=== PATIENT | female | born 1960 | race Caucasian/White ===

== ENCOUNTER 2022-10-07 15:32 | Emergency (ER) | payer OTHER, SELFPAY ==
--- NOTE | ~2022-10-07 | XR_ITS ---
XR ankle RT min 3V, XR foot RT min 3V 10/07/2022 15:55 Indication: Right ankle and foot pain. Procedure: 4 views right ankle and 4 views right foot Comparison: No prior studies for comparison. Findings: There is polyarticular osteoarthritis. Prominent calcaneal enthesophyte. There is an osteoc hondral defect medial aspect of the talar dome. Mild lateral soft tissue swelling. Lisfranc joint is intact. No acute fracture or traumatic malalignment. No foreign bodies. Impression: 1: No acute fracture. Reviewed, dictated and finalized at location A. 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 Impression: 1: No acute fracture.
[2022-10-07 15:39] VITALS: BP 127/86; PULSE 105; RESP 16; TEMP 36.4; O2SAT 100
[2022-10-07 15:41] VITALS: BP 127/86; PULSE 105; RESP 16; TEMP 36.4; O2SAT 100
--- NOTE | 2022-10-07 16:06 | ED.LOWEXIN ---
HPI - Extremity Injury (Lower) General Chief Complaint: Extremity Injury, Lower Stated Complaint: INJURED R ANKLE/TOES Time Seen by Provider: 10/07/22 16:05 Source: patient, RN notes reviewed and old records reviewed Mode of arrival: ambulatory Limitations: no limitations History of Present Illness HPI Narrative: 62 year old female who presents to [facility] care with complaints of slipping on rug this morning in her bathroom and hyperextended her right toes 1-4 and twisted her right ankle. Patient has palpable tenderness to the lateral aspect of her right ankle with swelling present, pain reported to increase with ambulation and weight bearing to 8/10. Patient has main tenderness to 2nd toe right foot with bruising and swelling noted distal 2nd toe. Patient has been taking Tylenol for her discomfort and has applied some ice intermittently. MD complaint: ankle injury and foot injury Onset (ago): hour(s) (this morning) Severity scale (1-10): 5 Exacerbating factors: weight bearing Treatments prior to arrival: cold therapy and other (Tylenol) Related Data Home Medications Medication Instructions Recorded Confirmed hydrochlorothiazide 25 mg tablet 25 mg PO PRN PRN Edema 10/07/22 10/07/22 levothyroxine 150 mcg tablet 150 mcg PO DAILY 10/07/22 10/07/22 (Synthroid) Allergies Allergy/AdvReac Type Severity Reaction Status Date / Time erythromycin base Allergy Unknown Itching Verified 10/07/22 15:39 AMOXICILLIN TRIHYDRATE Allergy Unknown Itching Uncoded 10/07/22 15:39 ERYTHROMYCIN LACTOBIONATE Allergy Unknown Hives Uncoded 10/07/22 15:39 POTASSIUM CLAVULANATE Allergy Unknown Hives Uncoded 10/07/22 15:39 Review of Systems Review of Systems: CONSTITUTIONAL: Denies fever, chills, or sweats. EYES: Denies visual changes, redness, or discharge. ENT: Denies rhinorrhea, congestion, sore throat, or otalgia. CARDIOVASCULAR: Denies chest pain, palpitations, or edema. RESPIRATORY: Denies cough or dyspnea. GASTROINTESTINAL: Denies abdominal pain, nausea, vomiting, or diarrhea. GENITOURINARY: Denies dysuria or hematuria. SKIN: Denies rash or itching. MUSCULOSKELETAL: Denies back pain,positive pain to lateral right ankle joint and pain right 2nd toe with swelling and bruising noted, or myalgia. NEUROLOGIC: Denies headache, numbness, or weakness. PSYCHIATRIC: Denies anxiety or depression. All systems reviewed & are unremarkable except as noted in HPI and below PMFSH Past Medical History Medical History (Updated 10/08/22 @ 09:28 by Ema Maxwell NP) Hypertension Hypothyroid Post-menopausal Surgical History Surgical History (Updated 10/08/22 @ 09:27 by Ema Maxwell NP) History of cholecystectomy History of tonsillectomy Hx of appendectomy Family History Family History Father Carcinoma of colon Mother Family history of lung cancer Other Family history of allergic disorder Family history of cardiovascular disease Hypertension Social History Social History (Updated 10/08/22 @ 09:24 by Ema Maxwell NP) Smoking status: Never smoker Alcohol intake: never Substance use: never Living arrangements: with family Additional occupation/education comments: [employer] 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 There is no relevant family history pertinent to the presenting complaint Exam Narrative: GENERAL: Well-appearing, well-nourished, and in no acute distress. HEAD: Normocephalic, atraumatic. EYES: PERRLA and EOMI. ENT: Nares clear, no rhinorrhea or epistaxis. Mucous membranes moist. NECK: Supple.no lymphadenopathy CHEST: Clear to auscultation. No respiratory distress.SAO2 100% on room air HEART: Regular rate and rhythm. No murmur heard. Normal peripheral pulses. ABDOMEN: Soft, nontender, nondistended, normal
== END 2022-10-07 16:30 | disposition home or self-care (01) ==
PROVIDERS: Emergency Provider Registered Nurse
DX: S93.401A Sprain of unspecified ligament of right ankle, initial encounter (principal); S96.911A Strain of unspecified muscle and tendon at ankle and foot level, right foot, initial encounter; S90.121A Contusion of right lesser toe(s) without damage to nail, initial encounter; I10 Essential (primary) hypertension; E03.9 Hypothyroidism, unspecified; X50.0XXA Overexertion from strenuous movement or load, initial encounter; Y92.002 Bathroom of unspecified non-institutional (private) residence as the place of occurrence of the external cause
CPT/HCPCS: 73610; 73630; 99203; G0463

== ENCOUNTER 2023-05-20 14:45 | Emergency (ER) | payer OTHER, SELFPAY ==
--- NOTE | ~2023-05-20 | XR_ITS ---
EXAM: XR ankle RT min 3V DATE: 05/20/2023 15:31 HISTORY: right ankle pain, injury . COMPARISON: 10/07/2022. FINDINGS: Normal mineralization. No fracture or dislocation. No lytic or blastic lesion. Moderate de generative change in the tibiotalar joint and midfoot. Moderate plantar enthesopathy. No erosion or p eriosteal change. Scattered soft tissue calcifications. IMPRESSION: No acute osseous finding in the right ankle. Reviewed, dictated and finalized at location K.
[2023-05-20 14:46] VITALS: BP 146/95; PULSE 74; RESP 18; TEMP 36.6; O2SAT 98
--- NOTE | 2023-05-20 15:22 | ED.LOWEXIN ---
HPI - Extremity Injury (Lower) General Chief Complaint: Extremity Injury, Lower Stated Complaint: right ankle injury Time Seen by Provider: 05/20/23 14:55 Source: patient Mode of arrival: wheelchair Limitations: no limitations History of Present Illness HPI Narrative: This is a 62 year old female that presents to the ER for right ankle injury sustained a couple hours prior to arrival. Reports she slipped and twisted the ankle. Reports pain and swelling. She is unable to bear weight due to pain. Denies decreased ROM or numbness. Related Data Home Medications Medication Instructions Recorded Confirmed hydrochlorothiazide 25 mg tablet 25 mg PO PRN PRN Edema 10/07/22 10/07/22 levothyroxine 150 mcg tablet 150 mcg PO DAILY 10/07/22 10/07/22 (Synthroid) Allergies Allergy/AdvReac Type Severity Reaction Status Date / Time erythromycin base Allergy Unknown Itching Verified 05/20/23 14:46 AMOXICILLIN TRIHYDRATE Allergy Unknown Itching Uncoded 05/20/23 14:46 ERYTHROMYCIN LACTOBIONATE Allergy Unknown Hives Uncoded 05/20/23 14:46 POTASSIUM CLAVULANATE Allergy Unknown Hives Uncoded 05/20/23 14:46 Review of Systems Review of Systems: CONSTITUTIONAL: Denies fever MUSCULOSKELETAL: Reports joint pain, and myalgia. NEUROLOGIC: Denies numbness All systems reviewed & are unremarkable except as noted in HPI and below PMFSH Past Medical History Medical History (Updated 05/20/23 @ 16:01 by Kia Bolivar PA-C) Hypertension Hypothyroid Post-menopausal Surgical History Surgical History (Updated 10/08/22 @ 09:27 by Ema Maxwell NP) History of cholecystectomy History of tonsillectomy Hx of appendectomy Family History Family History Father Carcinoma of colon Mother Family history of lung cancer Other Family history of allergic disorder Family history of cardiovascular disease Hypertension Social History Social History (Updated 10/08/22 @ 09:24 by Ema Maxwell NP) Smoking status: Never smoker Alcohol intake: never Substance use: never Living arrangements: with family 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 HEAD: Normocephalic, atraumatic. EYES: EOMI. EXTREMITIES: Normal range of motion. No obvious deformity. Normal DP pulse. Normal sensation. Tender to palpation of right lateral malleoli SKIN: Warm, dry, no rash. NEURO: No focal deficits. Alert and oriented x3. PSYCH: Normal mood and affect Course Course Emergency Course: Patient and family updated on work-up and agree with plan of care Vital Signs Vital signs: Vital Signs Temperature 97.9 F 05/20/23 14:46 Pulse Rate 74 05/20/23 14:46 Respiratory Rate 18 05/20/23 14:46 Blood Pressure 146/95 H 05/20/23 14:46 Pulse Oximetry 98 05/20/23 14:46 Oxygen Delivery Room Air 05/20/23 14:46 Temperature 97.9 F 05/20/23 14:46 Pulse Rate 74 05/20/23 14:46 Respiratory Rate 18 05/20/23 14:46 Blood Pressure 146/95 H 05/20/23 14:46 Pulse Oximetry 98 05/20/23 14:46 Oxygen Delivery Room Air 05/20/23 14:46 MDM - Extremity Injury (Lower) MDM Narrative Medical decision making narrative: Patient presents to the emergency department for right ankle pain after an injury today. She is neurovascularly intact. Right ankle x-ray without acute osseous abnormalities. Patient placed in Giuseppe wrap. Instructed on care of ankle sprain. She is to follow-up with primary provider. She was given warnings to return to the ER Differential Diagnosis Differential diagnosis: Likely ankle sprain and strain and ankle fracture Imaging Data Radiologist's impression: ITS Impressions Ankle X-Ray 05/20/23 15:33 IMPRESSION: No acute osseous finding in the right ankle.
[2023-05-20] MEDS: IBUPROFEN 600 MG TABLET PO (15:44)
== END 2023-05-20 16:20 | disposition home or self-care (01) ==
PROVIDERS: Emergency Provider Physician Assistant
DX: S93.401A Sprain of unspecified ligament of right ankle, initial encounter (principal); S96.911A Strain of unspecified muscle and tendon at ankle and foot level, right foot, initial encounter; I10 Essential (primary) hypertension; E03.9 Hypothyroidism, unspecified; Z90.49 Acquired absence of other specified parts of digestive tract; W18.40XA Slipping, tripping and stumbling without falling, unspecified, initial encounter; X50.9XXA Other and unspecified overexertion or strenuous movements or postures, initial encounter
CPT/HCPCS: 73610; 99283; A9270

== ENCOUNTER 2023-12-27 14:49 | Emergency (ER) | payer OTHER, SELFPAY ==
--- NOTE | ~2023-12-27 | XR_ITS ---
EXAMINATION: XR chest 2V DATE: 12/27/2023 15:53 INDICATION: Cough. TECHNIQUE: Frontal and lateral views of the chest were obtained. COMPARISON: Chest 2 views 12/12/2008 FINDINGS: There is no pneumonia, pleural effusion, or pneumothorax. The heart size is normal. Surgica l clips in the right upper quadrant are likely from cholecystectomy. IMPRESSION: 1. No acute cardiopulmonary disease. Reviewed, dictated and finalized at location A.
[2023-12-27 14:58] VITALS: BP 140/81; PULSE 84; RESP 16; TEMP 36.9; O2SAT 96
--- NOTE | 2023-12-27 15:25 | ED.URI ---
HPI - URI/Sore Throat General Chief Complaint: Upper Respiratory Infection Stated Complaint: COUGH/CHEST & RIB TIGHT/NAUSEA/VOMITING/DIARRHEA Time Seen by Provider: 12/27/23 15:26 Source: patient Mode of arrival: ambulatory Limitations: no limitations History of Present Illness HPI Narrative: 63-year-old presented for complaint of cough for 5 days. Reports fever at onset. Cough has caused sleep disturbance, bilateral lower rib pain, and occasional vomiting. Endorses shortness of breath and fatigue at times. Over the last few days she has developed nausea and diarrhea. Last diarrhea was today, denies hematochezia melena, or abdominal pain. Fever has resolved. She tested negative for COVID at the onset. She has taken Tylenol and Zofran for symptoms. History of bilateral leg swelling, denies diagnosis of CHF. Related Data Home Medications Medication Instructions Recorded Confirmed hydrochlorothiazide 25 mg tablet 25 mg PO PRN PRN Edema 10/07/22 12/27/23 levothyroxine 150 mcg tablet 150 mcg PO DAILY 10/07/22 12/27/23 (Synthroid) Allergies Allergy/AdvReac Type Severity Reaction Status Date / Time erythromycin base Allergy Unknown Itching Verified 12/27/23 15:48 AMOXICILLIN TRIHYDRATE Allergy Unknown Itching Uncoded 12/27/23 15:48 ERYTHROMYCIN LACTOBIONATE Allergy Unknown Hives Uncoded 12/27/23 15:48 POTASSIUM CLAVULANATE Allergy Unknown Hives Uncoded 12/27/23 15:48 Review of Systems Review of Systems: CONSTITUTIONAL: Denies body aches, fever, chills, or sweats. EYES: Denies visual changes, redness, or discharge. ENT: Denies rhinorrhea, congestion, sore throat, or otalgia. CARDIOVASCULAR: Denies chest pain, palpitations, or edema. RESPIRATORY: Reports cough, sob,denies wheezing. GASTROINTESTINAL: Denies abdominal pain, vomiting, reports nausea, diarrhea. GENITOURINARY: Denies dysuria or hematuria. SKIN: Denies rash, itching, or wounds. MUSCULOSKELETAL: Denies back pain, joint pain, or myalgia. NEUROLOGIC: Denies headache, numbness, tingling, or weakness. 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 Please see nursing chart for further information. There is no relevant family history pertinent to the presenting complaint Exam Narrative: GENERAL: Well-appearing, in no acute distress. EYES: EOMI. No redness or drainage. Conjunctivae normal. ENT: Mucous membranes pink and moist. No rhinorrhea. TMs normal bilaterally. Throat normal. Uvula midline. CHEST: No respiratory distress. lungs clear to all dorado, exhale induces coughing. Speaks full sentences without difficulty. HEART: Regular rate and rhythm. No murmur appreciated. ABDOMEN: Soft, nontender, nondistended, normal active bowel sounds. EXTREMITIES: Normal range of motion. Bilateral LE edema. SKIN: Warm, dry, no rash. Capillary refill normal. Normal skin turgor. NEURO: Alert and oriented x3. Gait st
--- NOTE | 2023-12-27 16:01 | PC.NURSE ---
1600- report given to pio BRIONES
== END 2023-12-27 16:07 | disposition home or self-care (01) ==
PROVIDERS: Emergency Provider Nurse Practitioner Family; PCP Family Medicine
DX: J40 Bronchitis, not specified as acute or chronic (principal); I10 Essential (primary) hypertension; E03.9 Hypothyroidism, unspecified
CPT/HCPCS: 71046; 99213; G0463

== ENCOUNTER 2025-02-02 10:32 | Emergency (ER) | payer OTHER, SELFPAY ==
--- NOTE | 2025-02-02 10:33 | ED_ITS ---
HPI - URI/Sore Throat General Chief Complaint: Upper Respiratory Infection Stated Complaint: Cough,Fever,Bodyaches Time Seen by Provider: 02/02/25 10:33 Source: patient Mode of arrival: ambulatory Limitations: no limitations History of Present Illness HPI Narrative: Ema is a 64-year-old female patient presenting to the clinic today with complaints of cough, fever, nasal congestion, wheezing, and body aches 2 days. She reports symptoms started the night before last. States her son is also home sick with similar symptoms. Tested herself for COVID yesterday and was negative. States highest fever was 102.5. Cough is productive at times with some clear phlegm. Related Data Allergies Allergy/AdvReac Type Severity Reaction Status Date / Time erythromycin base Allergy Unknown Itching Verified 02/02/25 10:42 AMOXICILLIN TRIHYDRATE Allergy Unknown Itching Uncoded 02/02/25 10:42 ERYTHROMYCIN LACTOBIONATE Allergy Unknown Hives Uncoded 02/02/25 10:42 POTASSIUM CLAVULANATE Allergy Unknown Hives Uncoded 02/02/25 10:42 Review of Systems Review of Systems: Pertinent positives per HPI. Patient denies any rash, headache, visual changes, dizziness, shortness of breath, chest pain, palpitations, nausea, vomiting, diarrhea, constipation, abdominal pain, or any urinary issues. 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 There is no relevant family history pertinent to the patient complaint. Exam Narrative: General: Well-developed, morbidly obese, in no apparent distress Head: Normocephalic, atraumatic Eyes: Pupils equally round and reactive to light bilaterally, EOM intact, sclera and conjunctive clear, no discharge, lids normal Ears: TMs intact and clear, ear canals clear, no drainage, grossly hearing normal. Nose: Nares patent, clear nasal discharge, mild inflammation, no sinus tenderness. Mouth: Oral pharynx without lesions or masses, good dentition, MMM. Postnasal drip, tonsils surgically absent Neck: Supple, trachea midline, no enlargement of anterior or posterior cervical nodes, no thyroid masses or goiter palpable. Cardio: Regular rate and rhythm, s1 and s2 normal, no murmur appreciated. Resp: Clear to auscultation bilaterally, no rhonchi, rales, wheezing or rubs Course Course Emergency Course: Portions of this record may have been created with voice recognition software. Level of Care: Express Care Visit Vital Signs Vital signs: Vital Signs Temperature 36.9 C 02/02/25 10:38 Pulse Rate 85 02/02/25 10:38 Respiratory Rate 18 02/02/25 10:38 Blood Pressure 151/97 H 02/02/25 10:38 Pulse Oximetry 98 02/02/25 10:38 Oxygen Delivery Room Air 02/02/25 10:38 Temperature 36.9 C 02/02/25 10:38 Pulse Rate 85 02/02/25 10:38 Respiratory Rate 18 02/02/25 10:38 Blood Pressure 151/97 H 02/02/25 10:38 Pulse Oximetry 98 02/02/25 10:38 Oxygen Delivery Room Air 02/02/25 10:40 Vital signs reviewed MDM - URI/Sore Throat MDM Narrative Medical decision making narrative: At the time of visit patient is resting comfortably on the exam table. Patient appears to be nontoxic. Labs: COVID and influenza testing was performed and negative in the clinic today. Plan: I suspect patient has URI with cough and congestion. Work note was given. Prescription for Tessalon Perles and albuterol inhaler was sent to the pharmacy. Supportive measures were discussed with the patient and they voiced understanding discharge instructions and agrees to treatment plan. Return precautions reviewed Differential Diagnosis Differential diagnosis: Likely upper respiratory infection, otitis media, sinusitis, viral infection, bronchitis, influenza, pharyngitis and other (COVID) Lab Data Labs: Lab Results 02/02/25 02/02/25 Range/Units 10:55 10:56 POC Influenza A Ag Negative (Negative) POC Influenza B Ag Negative (Negative) POC SARS CoV-2 Ag Negative (Negative) Discharge Plan Discharge Clinical Impression: Upper respiratory infection with cough and congestion Patient Disposition: Home Condition: Stable Instructions: Antibiotic Form, Cold Symptoms (ED) Additional Instructions: COVID and influenza testing was performed and were negative in the clinic today No sign of bacterial infection in the clinic today and lung sounds are clear. Take medications as prescribed-Tessalon Perles for cough and albuterol inhaler as needed for cough, shortness breath, wheeze Increase fluids and stay well hydrated Tylenol/motrin for pain/fever Flonase and OTC antihistamines as directed Vicks vapor rub to open sinuses Sinus rinses for congestion Cepacol spray, cough drops, throat lozenges, warm tea with honey/lemon, gargle salt water to soothe throat BRAT diet for diarrhea Clear liquids x 24 hours then advance as tolerated for nausea/vomiting Go to the ED if you develop a worsening in your condition- high fever not controlled by Tylenol or Motrin, dehydration, weakness, lethargy, shortness of breath, or chest pain. Follow up with your PCP in 3-5 days if symptoms persist. Patient Language: Brazilian Prescriptions: New benzonatate 200 mg capsule 200 mg PO TID 7 Days Qty: 21 0RF albuterol sulfate 90 mcg/actuation HFA aerosol inhaler 2 puff inhalation Q4-6H PRN (Reason: shortness of breath or wheezing) 30 Days Qty: 8.5 0RF Follow-up/Referrals: Twyla,Mahsa Louise MD [Primary Care Provider] - Stand Alone Forms: Work/School Release IP Time of Disposition: 10:56 Quality NIHSS Nursing Documentation ED NIHSS nursing documentation: reviewed/agree
[2025-02-02 10:38] VITALS: BP 151/97; PULSE 85; RESP 18; TEMP 36.9; O2SAT 98
[2025-02-02 10:57] LABS: EDINFLUASCREEN Negative (Negative); EDINFLUBSCREEN Negative (Negative)
[2025-02-02 10:57] LABS: EDCOVIDSCREEN Negative (Negative)
== END 2025-02-02 10:59 | disposition home or self-care (01) ==
PROVIDERS: Emergency Provider Nurse Practitioner Family; PCP Family Medicine
DX: J06.9 Acute upper respiratory infection, unspecified (principal); R05.9 Cough, unspecified; Z20.822 Contact with and (suspected) exposure to COVID-19; I10 Essential (primary) hypertension; E03.9 Hypothyroidism, unspecified
CPT/HCPCS: 87426; 87804; 99213; G0463

== ENCOUNTER 2025-03-04 00:07 | Emergency (ER) | payer OTHER, SELFPAY ==
--- NOTE | ~2025-03-04 | XR_ITS ---
Left elbow Technique: AP, oblique, and lateral views were obtained. Clinical History: Pain Findings: No acute fracture or dislocation is seen. Osseous alignment is anatomic. Joint spaces are p reserved. There is no displacement of the fat pads, and soft tissues are unremarkable. Impression: Unremarkable radiographs. Reviewed, dictated and finalized at location . Impression: Unremarkable radiographs.
--- NOTE | ~2025-03-04 | XR_ITS ---
Left Shoulder Technique: AP and scapular Y views were obtained. Clinical History: Trauma Findings: No fracture or dislocation is seen. Osseous alignment is anatomic. The glenohumeral and acr omioclavicular joint spaces are preserved. Soft tissues are unremarkable. Impression: Unremarkable left shoulder radiographs. Reviewed, dictated and finalized at [facility]. Impression: Unremarkable left shoulder radiographs.
--- NOTE | ~2025-03-04 | XR_ITS ---
Left Humerus Technique: AP and lateral views were obtained. Clinical History: Trauma Findings: No fracture or dislocation is seen. Osseous alignment is anatomic. Visualized joint spaces are grossly preserved. Soft tissues are unremarkable. Impression: Unremarkable examination. No fracture or dislocation. Reviewed, dictated and finalized at location . Impression: Unremarkable examination. No fracture or dislocation.
--- NOTE | ~2025-03-04 | XR_ITS ---
Left Forearm AP and lateral views of the left forearm were performed. Clinical History: Trauma Findings: No fracture or dislocation is seen. Osseous alignment in anatomic. Joint spaces are prese rved. Soft tissues are unremarkable. Impression: Unremarkable exam. Reviewed, dictated and finalized at location M. Impression: Unremarkable exam.
--- OUTSIDE RECORDS SUMMARY | 2025-03-04 00:09 | XMS_ITS | Continuity of Care Document ---
Author Organization [facility] Address [address] [place] [address] [place] [address] Phone Care Team Providers Care Child Care Giver Name Role Phone Lucila AUGUSTINE, Grant Bauer Unavailable Unavaila ble Procedures Procedure Date New Pt-Compreh (4) Scan Computeriz Ophth Dx Imag, Retina Ext Ophthal-Initial LT Ext Ophthal-Initial RT Advance Directives Directive Yes / No Effective Date File Name No Information Encounters Encounter Description Practice Location Reason(s) For Visit Diagnoses Date Provider Providers Copied on Encounter [facility] [address] G[place], [id number], tel:[phone] [facility] No Information 4 Lucila Bauer. [address] [place] [address] Dr Schuyler Jadon, [place], [place], [id number] , . tel:[phone] New Pt-Compreh (4) [facility] [address] [place], [id number], tel:[phone] [facility] No Information 9 Lucila Bauer. [address] [place] [address] Schuyler Baca, [place], [place], [id number] , . [phone] Referring Provider: Katerina Cazares OD, [address], [place], [address] . tel:[phone] Family History Family Member Type Diagnosis Age At Onset No Information Payers Payer name Insurance type Covered democrat ID Authoriza tion(s) No Information Social History Type Description Quantity Date Captured Comments Sex Female Smoking Status No Information Chief Complaint And Reason For Visit No Information Reason For Referral Reason For Referral No Information History Of Present Illness Encounter Date Complaint History Of Prese nt Illness No Information Functional Status Date Functional Assessmen t No Information Instructions Date Instruction Additional Infor mation No Information Assessments Type Assessment Date No Information Patient Care Teams Name Effective Dates (start - stop) Status Members No Information
--- OUTSIDE RECORDS SUMMARY | 2025-03-04 00:09 | XMS_ITS | Referral Summary ---
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
--- OUTSIDE RECORDS SUMMARY | 2025-03-04 00:09 | XMS_ITS | Encounter Summary ---
Author Organization [facility] Address 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
--- OUTSIDE RECORDS SUMMARY | 2025-03-04 00:09 | XMS_ITS | Continuity of Care Document ---
Author Organization [facility] ter Address [address] [place] [address] Phone Care Team Providers Care Derrick Worker Name Role Phone Mary Rowley APRN Unavailable Unavailable Allergies, Adverse Reactions, Alerts Substance Reaction Status Criticality codeine Active No Information Medications Medication Instructions Dosage Effective Dates (start - stop) Status Comments methimazole 5 mg tablet take 1 tablet by oral route 2 times every day 5 MG - Active benazepril 40 mg tablet take 1 tablet by oral route every bedtime 40 MG - Active Klor-Con 10 mEq tablet,extended release take 1 tablet by oral route 2 times every day with food 10 MEQ - Active metoprolol succinate ER 100 mg tablet,extended release 24 hr take 1 tablet by oral route every evening 100 MG - Active Procedures Procedure Date No Show Charge Offic/outpt E&m Estab Low-mod 7 Offic/outpt E&m Estab [facility]-ne 2 17 Preven Meds 40-64 Offic/outpt E&m Estab Low-mod 7 Offic/outpt E&m Estab Mod-ne 2 17 Offic/outpt E&m Estab [facility] [place]-ne 2 17 Offic/outpt E&m Estab Low-mod 7 Init Preven 40-64 Yrs Advance Directives Directive Yes / No Effective Date File Name No Information Encounters Encounter Description Practice Location Reason(s) For Visit Diagnoses Date Provider Providers Copied on Encounter [facility], [address], [place], [place], [id number], [place] tel:[phone] [facility] No Information 0 Halley Hernandez. [address], [address], [place], [place], [id number] , [place]. tel: [phone] [facility], [address], [place], [place], [id number], [place] tel:[phone] [facility] No Information 8 [place]. [address], [place], [place], [id number] , [place]. tel: [phone] No Show Charge [facility], [address], [place], [place], [id number], [place] tel:[phone] [facility] No Information 8 [place]. [address], [address], [place], [place], [id number] , [place]. tel: [phone] [facility], [address], [place], [place], [id number], [place] tel:[phone] [facility] No Information 7 [place]. [address], [place], [place], [id number] , [place]. tel: [phone] Offic/outpt E&m Estab Low-mod [facility], [address], [place], [place], [id number], [place] tel:[phone] [facility] chronic conditions (chief complaint)rev iew labs (chief complaint) Thyrotoxicosis, unspecified without thyrotoxic crisis or stormUnilateral post-traumatic osteoarthritis, right kneeEssential (primary) hypertensionHypok alemia 7 [place]. [address], [address], [place], [place], [id number] , [place]. tel: [phone] Offic/outpt E&m Estab Mod-hi 2 [facility], [address], [place], [place], [id number], [place] tel:[phone] [facility] chronic conditions (chief complaint)dis cuss lab results (chief complaint) Thyrotoxicosis, unspecified without thyrotoxic crisis or stormUnilateral post-traumatic osteoarthritis, right kneeAllergic rhinitis due to pollenEssential (primary) hypertensionType 2 diabetes mellitus with diabetic dermatitisHypokal emia 7 [place]. [address], [place], [place], [id number] , [place]. tel: [phone] Prev Meds 40-64 [facility], [address], [place], [place], [id number], [place] tel:[phone] [facility] chronic conditions (chief complaint)rev iew labs (chief complaint)pre ventive exam (chief complaint) Thyrotoxicosis, unspecified without thyrotoxic crisis or stormUnilateral post-traumatic osteoarthritis, right kneeType 2 diabetes mellitus with diabetic dermatitisEssenti al (primary) hypertensionHypok alemiaBody mass index (BMI) 37.0-37.9, adultEncounter for general adult medical examination without abnormal findings 7 [place]. [address] [facility], [place], [place], [id number] , [place]. tel: [phone] Offic/outpt E&m Estab Low-mod [facility], [address], [place], [place], [id number], [place] tel:[phone] [facility] hypertension (chief complaint)ref ill (chief complaint)chr onic conditions (chief complaint) Thyrotoxicosis, unspecified without thyrotoxic crisis or stormEssential (primary) hypertensionUnila teral post-traumatic osteoarthritis, right kneeType 2 diabetes mellitus with diabetic dermatitis 7 [place]. [address], [place], [place], [address] , [place]. tel:[phone] Offic/outpt E&m [facility] 2 [facility], [address], [place], [place], [id number], [place] tel:[phone] [facility] chronic conditions (chief complaint)rev iew labs (chief complaint) Thyrotoxicosis, unspecified without thyrotoxic crisis or stormUnilateral post-traumatic osteoarthritis, right kneeAllergic rhinitis due to pollenType 2 diabetes mellitus with diabetic dermatitisEssenti al (primary) hypertensionAnemi a 7 [place]. [address], [place], [place], [id number] , [place]. tel:[phone] Offic/outpt E&m [facility] 2 [facility], [address], [place], [place], [address], [place] tel:[phone] [facility] chronic conditions (chief complaint)dis cuss medication/ (chief complaint) Thyrotoxicosis, unspecified without thyrotoxic crisis or stormAllergic rhinitis due to pollenType 2 diabetes mellitus with diabetic dermatitisEssenti al (primary) hypertensionAnemi a 7 [place]. [address], [place], [place], [address] , [place]. tel:[phone] Offic/outpt E&m Estab Low-mod [facility], [address], [place], [place], [id number], [place] tel:[phone] [facility] chronic conditions (chief complaint)rev iew labs (chief complaint)ref ill (chief complaint) Thyrotoxicosis, unspecified without thyrotoxic crisis or stormAllergic rhinitis due to pollenUnilateral post-traumatic osteoarthritis, right kneeEssential (primary) hypertensionType 2 diabetes mellitus with diabetic dermatitisEncount er for screening for lipoid disorders 7 [place]. [address], [address], [place], [place], [address] , [place]. tel:[phone] Init Preven 40-64 Yrs [facility], [address], [place], [place], [id number], [place] tel:[phone] [facility] chronic conditions (chief complaint)lab slip (chief complaint) Essential (primary) hypertensionThyro toxicosis, unspecified without thyrotoxic crisis or stormUnilateral post-traumatic osteoarthritis, right kneeMenorrhagiaTy pe 2 diabetes mellitus with diabetic dermatitis 7 [place]. [address], [address], [place], [place], [address] , [place]. tel:[phone] Family History Family Member Type Diagnosis Age At Onset Problem (finding) Family history of malignant neoplasm of lung Problem (finding) Family history of Heart disease Problem (finding) Family history of diabetes mellitus type 2 Problem (finding) Family history of hyper tension Payers Payer name Insurance type Covered constitution party ID Authoriza tion(s) No Information Social History Type Description Quantity Date Captured Comments Sex Female Smoking Status No Information Chief Complaint And Reason For Visit No Information Reason For Referral Reason For Referral No Information Plan Of Treatment Date Type Action Status Referral Ordered: Diana -Gynecology (related to Menorrhagia) ordered Referral Referred To: Diana Ordered: Referrals: Gynecology. Diana. Consult ordered Future Order: Lab Order Iron/TIB C ([id number]), Sent on: Sent Future Order: Lab Order FERRITIN ([id number]), Sent on: Sent Future Order: Lab Order CBC with Diff ([id number]), Sent on: Sent History Of Present Illness Encounter Date Complaint History Of Prese nt Illness chronic conditions 1) Thyrotoxic osis, unspecified without thyrotoxic crisis or storm (onset 11/03/2016; Stable. pt has no complaints) 2) Unilateral post-traumatic osteoarthritis, right knee (onset 11/03/2016; Stable. pt has no complaints) 3) Essential (primary) hypertension (onset 11/03/2016; Stable. pt has no complaints) Pertinent negatives include fatigue. review labs chronic conditions 1) Thyrotoxic osis, unspecified without thyrotoxic crisis or storm (onset 11/03/2016; Stable. pt has no complaints) 2) Unilateral post-traumatic osteoarthritis, right knee (onset 11/03/2016; Stable. pt has no complaints) 3) Allergic rhinitis due to pollen (onset 11/03/2016; Stable. pt has no complaints) 4) Essential (primary) hypertension (onset 11/03/2016; Stable. pt has no complaints) 5) Type 2 diabetes mellitus with diabetic dermatitis (onset 11/03/2016; Stable. pt has no complaints) Pertinent negatives include fatigue. discuss lab results pt was to cavanaugh ve surgery today but it was cx because her potassium was to low 2.5 -- she was told to f/u with her PCP / she is on potassium klor con 40meq 2 tabs bic preventive exam Negative for dys menorrhea and menorrhagia. Menopausal symptoms negative for: night sweats. Pertinent negatives include anxiety, depression and vaginal discharge. The patient does not use tobacco. She does drink alcohol. chronic conditions 1) Thyrotoxic osis, unspecified without thyrotoxic crisis or storm (onset 11/03/2016; Stable. pt has no complaints) 2) Unilateral post-traumatic osteoarthritis, right knee (onset 11/03/2016; Stable. pt has no complaints) 3) Type 2 diabetes mellitus with diabetic dermatitis (onset 11/03/2016; Stable. pt has no complaints) 4) Essential (primary) hypertension (onset 11/03/2016; Stable. pt has no complaints) Pertinent negatives include fatigue. review labs chronic conditions 1) Thyrotoxic osis, unspecified without thyrotoxic crisis or storm (onset 11/03/2016; Stable. pt has no complaints) 2) Essential (primary) hypertension (onset 11/03/2016; Stable. pt has no complaints) 3) Unilateral post-traumatic osteoarthritis, right knee (onset 11/03/2016; Stable.) 4) Type 2 diabetes mellitus with diabetic dermatitis (onset 11/03/2016; Stable. pt has no complaints) Pertinent negatives include fatigue. refill hypertension The symptoms beg an 30 years ago. It is currently getting worse. Risk factors include race. The hypertension is exacerbated by nothing. Pertinent negatives include chest pain, claudication, dyspnea, fatigue, hematuria, irregular heartbeat/palpitations and vomiting. chronic conditions 1) Thyrotoxic osis, unspecified without thyrotoxic crisis or storm (onset 11/03/2016; Stable. pt has no complaints) 2) Unilateral post-traumatic osteoarthritis, right knee (onset 11/03/2016; Stable. pt has no complaints) 3) Allergic rhinitis due to pollen (onset 11/03/2016; Stable. pt has no complaints) 4) Type 2 diabetes mellitus with diabetic dermatitis (onset 11/03/2016; Stable. pt has no complaints) 5) Essential (primary) hypertension (onset 11/03/2016; Uncontrolled. pt has no complaints) Pertinent negatives include fatigue. review labs chronic conditions 1) Thyrotoxic osis, unspecified without thyrotoxic crisis or storm (onset 11/03/2016; Stable. pt has no complaints) 2) Allergic rhinitis due to pollen (onset 11/03/2016; Stable. pt has no complaints) 3) Type 2 diabetes mellitus with diabetic dermatitis (onset 11/03/2016; Stable. pt has no complaints) 4) Essential (primary) hypertension (onset 11/03/2016; Stable. pt has no complaints) Pertinent negatives include fatigue. discuss medication/ chronic conditions 1) Thyrotoxic osis, unspecified without thyrotoxic crisis or storm (onset 11/03/2016; Stable. pt has no complaints) 2) Allergic rhinitis due to pollen (onset 11/03/2016; Stable. pt has no complaints) 3) Unilateral post-traumatic osteoarthritis, right knee (onset 11/03/2016; Stable. pt has no complaints) 4) Essential (primary) hypertension (onset 11/03/2016; Stable. pt has no complaints) 5) Type 2 diabetes mellitus with diabetic dermatitis (onset 11/03/2016; Stable. A1C 6.1) Pertinent negatives include fatigue, weight gain and weight loss. refill review labs lab slip chronic conditions 1) Essential (primary) hypertension (onset 11/03/2016; Stable. pt has no complaints) 2) Thyrotoxicosis, unspecified without thyrotoxic crisis or storm (onset 11/03/2016; Stable. pt has no complaints) 3) Unilateral post-traumatic osteoarthritis, right knee (onset 11/03/2016; Stable. pt has no complaints) Pertinent negatives include fatigue, weight gain and weight loss. Functional Status Date Functional Assessmen t No Information Instructions Date Instruction Additional Infor meri Follow a low sodium diet. Relate d to Essential (primary) hypertension Increase activity. Related to Es sential (primary) hypertension Follow a low sodium diet. Relate d to Essential (primary) hypertension Increase activity. Related to Es sential (primary) hypertension Increase activity. Related to Es sential (primary) hypertension Follow a low sodium diet. Relate d to Essential (primary) hypertension Giving encouragement to exercise Related to Body mass index (BMI) 37.0-37.9, adult Weight loss from baseline weight Related to Body mass index (BMI) 37.0-37.9, adult Increase activity. Related to Es sential (primary) hypertension Follow a low sodium diet. Relate d to Essential (primary) hypertension Follow a low sodium diet. Relate d to Essential (primary) hypertension Increase activity. Related to Es sential (primary) hypertension diet and exercise Related to [place] Follow a low sodium diet. Relate d to Essential (primary) hypertension Increase activity. Related to Es sential (primary) hypertension Assessments Type Assessment Date No Information Patient Care Teams Name Effective Dates (start - stop) Status Members No Information
--- OUTSIDE RECORDS SUMMARY | 2025-03-04 00:09 | XMS_ITS | Clinical Summary ---
Author Organization [facility] Address [address] [place] [address] Care Team Providers Care Char Conveyor Tender Name Role Phone Unavailable Primary Care Provider Unavailabl e Social History Tobacco Use Types Packs/Day Years Used Date Smoking Tobacco: Never Assessed Comments Unknown Sex and Gender Information Value Date Recorded Sex Assigned at Not on file Legal Sex Female 5:14 PM CDT Gender Identity Not on file Sexual Orientation Not on file Plan of Treatment Health Maintenance Due Date Last Done Comments Cervical Cancer Screening Pa p Smear (Age 30 to 64) Every 3 Years 1960 Colorectal Cancer Screening Colonoscopy (10 Years) 1960 Annual Physical 1963 Hepatitis C 1978 DTaP, Tdap and Td Vaccines ( 1 - Tdap) 1979 Cervical Cancer Screening Pa p with HPV Testing (Age 30 to 64) Every 5 Years 1990 Cervical Cancer Screening with HPV 1990 Mammogram Screening 2000 Pneumococcal Vaccine: 50+ Ye ars (1 of 1 - PCV) 2010 Zoster Vaccines (1 of 2) 2010 COVID-19 Vaccine (2023-2 5 season) 2024 RSV Immunization or 60+ Years (1 - 1-dose 75+ series) 2035 Meningococcal B Vaccine Aged Out No l onger eligible based on patient's age to complete this topic Meningococcal Vaccine Aged Out No mauricio pat eligible based on patient's age to complete this topic RSV Immunizations Under 20 Months Aged Out No longer eligible based on patient's age to complete this topic
--- OUTSIDE RECORDS SUMMARY | 2025-03-04 00:09 | XMS_ITS | Clinical Summary ---
Author Organization [facility] Address [address] [place] [address] Care Team Providers Care Key Punch Operator Name Role Phone Mahsa Wakefield MD Primary Care Provider [phone] Source Comments [facility],non-owned Affiliates and Associated Physician Practices is amultiple site organization consisting of ambulatory clinics and hospital sitesin [place], [place], [place]. This disclosure is being madepursuant to the Care Everywhere program and may not contain all information available regarding this patient. Last updated 18.[facility] Allergies Active Allergy Reactions Criticality Noted Date Comments Augmentin Rash Low 04/17/2016 Erythromycin GI Discomfort 04/17/2016 Medications * Be aware that medications may not be up to date on this document. Alwaysverify current medications with the patient. benzonatate (TESSALON) 200 MG capsule Take 1 Cap by mouth 3 times daily 20 Cap 0 04/17/2016 Active albuterol HFA (VENTOLIN HFA) 108 (90 BASE) MCG/ACT inhaler Inhale 2 Puffs by mouth every 6 hours as needed 1 Inhaler 0 04/17/2016 Active methylPREDNISol one (MEDROL DOSEPAK) 4 MG tablet Take by mouth as directed 1 Each 0 04/17/2016 Active azithromycin (ZITHROMAX) 250 MG tablet Take 2 tablets now, then 1 tablet daily for 4 days. 6 Tab 0 04/17/2016 Active Active Problems No known active problems Immunizations Immunization Administration Dates Next Due [employer] primary monoval ent 12+ yr 0.3mL Purple cap 10/02/2020,09/09/2020 Social History Tobacco Use Types Packs/Day Years Used Date Smoking Tobacco: Never Alcohol Use Standard Drinks/Week Comments Not Asked 0 (1 standard drink = 0.6 oz pur e alcohol) Comments Unknown Sex and Gender Information Value Date Recorded Sex Assigned at Not on file Legal Sex Female 6:16 AM ELECTRICAL CAD TECHNICIAN Gender Identity Not on file Sexual Orientation Not on file Last Filed Vital Signs Vital Sign Reading Time Taken Comments Blood Pressure 128/84 04/17/2016 2:43 PM CDT Pulse 78 04/17/2016 2:43 PM CDT Temperature 36.6 C (97.9 F) 04/17/2016 2:43 PM CDT Respiratory Rate 16 04/17/2016 2:43 PM CDT Oxygen Saturation 98% 04/17/2016 2:43 PM CDT Inhaled Oxygen Concentration - - Weight 154.2 kg (340 lb) 04/17/2016 2:43 PM CDT Height 165.1 cm (5' 5) 04/17/2016 2:43 PM CDT Body Mass Index 56.58 04/17/2016 2:43 PM CDT Plan of Treatment Health Maintenance Due Date Last Done Comments COLOGUARD (AGES 45-75) - COL ON CA SCREENING 1960 COLON MONITORING 1960 COLONOSCOPY - COLON CA SCREENING 1960 CT COLONOGRAPHY - COLON CA SCREENING 1960 Colorectal Cancer Screening 1960 FIT - COLON CA SCREENING 1960 FLEX SIG - COLON CA SCREENING 1960 MAMMOGRAM 1960 HIV SCREENING 1975 HEPATITIS C SCREENING 05/24/1978 DTAP/TDAP/TD VACCINES (1 - Tdap) 1979 PNEUMOCOCCAL VACCINE 50+ (1 of 1 - PCV) 2010 ZOSTER VACCINE (1 of 2) 2010 LIPID TESTING 06/30/2022 06/30/2017, 06/24/2016 COVID-19 VACCINE (3 - 2023-2 5 season) 2024 10/02/2020, 09/09/2020 DEPRESSION SCREENING 08/21/2024 INFLUENZA VACCINE (#1) 2025 0, 05/17/2019 Respiratory Syncytial Virus (RSV) Vaccine Pt: or over 60 yrs (1 - 1-dose 75+ series) 2035 HEPATITIS B VACCINE Aged Out No longe r eligible based on patient's age to complete this topic HIB VACCINE Aged Out No longer eligi ble based on patient's age to complete this topic HPV VACCINE Aged Out No longer eligi ble based on patient's age to complete this topic MENINGOCOCCAL (Group B) VACCINE SHARED DECISION-MAKING Aged Out No longer eligible based on patient's age to complete this topic MENINGOCOCCAL GROUPS A/C/Y/W VACCINE Aged Out No longer eligible b ased on patient's age to complete this topic Procedures Procedure Name Priority Date/Time Associated Diagnosis Comments LIPID PROFILE Routine 06/30/2017 10:58 AM ELECTRICAL CAD TECHNICIAN from Last 3 Months or Most Recently Relevant to Health Maintenance Results * (ABNORMAL) LIPID PROFILE (06/30/2017 10:58 AM ELECTRICAL CAD TECHNICIAN) Cholesterol Total 189 <200 mg/dL [facility] HDL 53 >40 mg/dL [facility] Comment: ATP III Classification of HDL Cholesterol: <40 mg/dL: Considered a major risk factor. >60 mg/dL: Considered a negative risk factor. LDL Calculated 114(H) <100 mg/dL [facility] Comment: ATP III Classification of LDL Cholesterol: <100 mg/dL: Optimal 100 - 129 mg/dL: Near Optimal/Above Optimal 130 - 159 mg/dL: Borderline High 160 - 189 mg/dL: High >190 mg/dL: Very High Triglycerides 109 <150 mg/dL [facility] Comment: ATP III Classification of Triglycerides: <150 mg/dL: Normal 150 - 199 mg/dL: Borderline High 200 - 400 mg/dL: High >500 mg/dL: Very High Blood specimen (specimen) BLOOD SPECIMEN / Unknown 06/30/2017 10:58 AM ELECTRICAL CAD TECHNICIAN 06/30/2017 11:34 AM ELECTRICAL CAD TECHNICIAN us Historical Provider LAB - CHEMISTRY ORDERABLE S Final Result [address] [phone] from Last 3 Months or Most Recently Relevant to Health Maintenance Insurance [facility] [place] [id number] [employer] Care Teams Key Punch Operator Relationship Specialty Start Date End Date Mahsa Wakefield MD [address] [address] PCP - General 07/19/21
--- OUTSIDE RECORDS SUMMARY | 2025-03-04 00:09 | XMS_ITS | Clinical Summary ---
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 SUPERVISOR Gender Identity Not on file Sexual Orientation Not on file Plan of Treatment Health Maintenance Due Date Last Done Comments Breast Cancer Screening-Mammogram 1960 Cervical Cancer Screening 1960 Colon Cancer Screening-Colonoscopy 1960 Depression Screening 1960 Hepatitis C Screening 1960 Hepatitis B Screening 1978 Regular Well Visit/Exam 18-64 1978 Zoster Vaccine (1 of 2) 2010 Covid-19 Vaccine ( season) 2024 05/04/2022, 06/02/2021, 10/02/2020, Additional history exists Influenza Vaccine (Season Ended) 2025 05/09/2020, 05/17/2019, 05/21/2018 DTaP/Tdap/Td Vaccine (4 - Td or Tdap) 12/03/2027 12/02/2017, 04/06/2017, 08/21/1996 Pneumococcal vaccine <65 Aged Out 08/25/2016 No longer eligible based on patient's age to complete this topic Insurance [facility]PPO Address: [place] [address] Care Teams Major Case Detective Relationship Specialty Start Date End Date Mahsa Wakefield MD [address] [address] PCP - General 12/19/11
--- OUTSIDE RECORDS SUMMARY | 2025-03-04 00:09 | XMS_ITS | Clinical Summary ---
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 Gender Identity Not on file Sexual Orientation Not on file Plan of Treatment Health Maintenance Due Date Last Done Comments DTAP/TDAP/TD VACCINES (1 - Tdap) 1979 HPV/Cotest (21-29) 1981 CERVICAL CANCER SCREENING 1990 HPV/Cotest (30-65) 1990 PAP SMEAR 1990 BREAST CANCER SCREENING 2000 COLORECTAL SCREENING 2005 Colorectal Cancer Screening 2005 FIT-DNA Q 3 years 2005 FIT/FOBT Q 1 year 2005 Flex Sig/CT Colonography Q 5 years 2005 ZOSTER VACCINE (1 of 2) 2010 INFLUENZA VACCINE (#1) 2025 RSV VACCINE (60+ or ) (1 - 1-dose 75+ series) 2035 Care Teams Clerk Carrier Relationship Specialty Start Date End Date Ying Wakefield PCP - General 03/04/01
--- OUTSIDE RECORDS SUMMARY | 2025-03-04 00:09 | XMS_ITS | Data Portability ---
[facility] [address] [place] [address] Care Team Providers Care Press Feeder Name Role Phone DILLAN WASHBURN Primary Care Provider Assessment Encounter Date Assessment Date Assessment LastModified by Organization Details LastModified Time 07/13/2020 07/13/2020 patient wants to wait on lab work due to Covid Not available 07/13/2020 12:29:26 Plan of Treatment Reminders Order Date Submit Date Provider Last Modified By Organization Details Last Modified Time Details Appointments None recorded. Lab magnesium , serum or plasma 2023 024 [facility], [address] [facility], [place], [address], 4 11:16:32 HbA1c (hemoglob in A1c), blood 2023 024 [email or web address] In-Office Order, Internal Use Only DO Not Attach Compendium DO Not Attach Compendium, Do Not Delete/merge, [id number] 10:30:57 BMP, serum or plasma 2023 024 [facility], [address] , [place], [address], 4 11:16:32 BMP, serum or plasma 2023 024 [email or web address], [address] [facility], [place], [address], 4 11:20:29 TSH + free T4, serum 2023 [facility] [address], [place], [address], 4 11:16:31 TSH, serum or plasma 2023 024 [facility], [address], [place], [address], 4 21:20:19 pro BNP (pro B-type natriuret ic peptide), serum or plasma [address] [facility], [address], [place], [address], 4 16:02:45 CBC w/ auto diff 2023 024 [facility] [address], [place], [address], 4 21:20:19 CMP, serum or plasma 2023 024 [facility] [address], [place], [address], 4 21:20:19 lipid panel, serum 2023 024 [facility], [address], [place], [address], 4 21:20:19 BMP, serum or plasma 2021 022 [facility], [address], [place], [address], 2 03:04:16 lipid panel, serum 2021 022 [facility], [address], [place], [address], 2 03:04:16 AST/SGOT (aspartat e aminotran sferase), serum or plasma 2021 022 [facility], [address], [place], [address], 2 03:04:17 CBC w/ auto diff 2021 022 [email or web address] [facility], [address] [facility], [place], [address], 2 03:04:17 TSH, serum or plasma 2021 022 [place] [facility], [address], [place], [address], 2 03:04:15 Referral None recorded. Procedures None recorded. Surgeries None recorded. Imaging XR, chest, 2 view 2023 024 [facility] [address] [place] [address], [address], 4 17:55:01 Medication Orders furosemid e 20 mg tablet 2023 024 [facility]/Pharmacy #[id number], [address] [place], [address], 4 10:33:46 Lasix 20 mg tablet 2023 024 [email or web address] [facility]/Pharmacy #[id number], [address], [place], [address], 4 23:27:23 hydrochlo rothiazid e 25 mg tablet 2021 022 [facility], [address] [place] [address], [address], 2 16:12:47 cephalexi n 500 mg capsule 2021 022 [id number], [address] [place], [address], 4 15:33:43 methylpre dnisolone 4 mg tablets in a dose pack [address] [facility]/Pharmacy #[id number], [address], [place], [address], 4 15:34:16 zolmitrip pickens 5 mg tablet 2021 022 [id number], [address], [place], [address], 2 16:12:48 valacyclo vir 1 gram tablet 2019 020 [id number], [address] [place], [address], 2 15:24:57 methylpre dnisolone 4 mg tablets in a dose pack [address] [facility]/Pharmacy #[id number], [address], [place], [address], 4 15:34:16 hydrochlo rothiazid e 25 mg tablet 2019 020 [facility]/Pharmacy #[id number], [address] [place], [address], 0 16:32:05 levothyro xine 150 mcg tablet 2019 020 [facility]/Pharmacy #[id number], [address], [place], [address], 0 12:32:03 Patient TargetsNo targets recorded. Patient Instructions Encounter Date Encounter Id Patient Instructions Last Modified By Organization Details Last Modified Time 03/07/2022 [id number] Acute Sinusitis: Care Instructions Not available 03/07/2022 16:12:42 Reason for Referral None Reported. Results Created Date Observation Date Name Description Value Unit Range Abnormal Flag Note LastModifiedBy Organization Detail LastModifiedTime 05/03/20 24 05/04/2024 TSH+F REE T4 TSH 0.36 mIU/L 0.40-4 .50 low Not Available [address], [address], 05/04/2024 11:16:31 05/03/20 24 05/04/2024 TSH+F REE T4 T4, free 1.5 NG/dL 0.8-1. 8 normal Not Available [address], [address], 05/04/2024 11:16:31 05/03/20 24 05/04/2024 MAGNE SIUM magnesium 2.0 mg/dL 1.5-2. 5 normal Not Available [address], [address], 05/04/2024 11:16:32 05/03/20 24 05/04/2024 BASIC METAB OLIC PANEL glucose 137 mg/dL 65-99 high Fasti ng refer ence inter shilpa For someo ne witho ut known diabe cait, a gluco se value >125 mg/dL indic ates that they may have diabe cait and this shoul d be confi rmed with a follo w-up test. Not Available [address], [address], 05/04/2024 11:16:32 05/03/20 24 05/04/2024 BASIC METAB OLIC PANEL urea nitrogen (BUN) 13 mg/dL 7-25 normal Not Available [facility] [address], [address], 05/04/2024 11:16:32 05/03/20 24 05/04/2024 BASIC METAB OLIC PANEL creatinine 0.90 mg/dL 0.50-1 .05 normal Not Available [address], [address], 05/04/2024 11:16:32 05/03/20 24 05/04/2024 BASIC METAB OLIC PANEL eGFR 72 mL/mi n/1.7 3m2 > or = 60 normal Not Available [address] [address] [place], [address], 05/04/2024 11:16:32 05/03/20 24 05/04/2024 BASIC METAB OLIC PANEL BUN/creatini ne ratio SEE NOTE: (calc ) 6-22 Not Repor vasile: BUN and Creat inine are withi n refer ence range . Not Available [address], [address], 05/04/2024 11:16:32 05/03/20 24 05/04/2024 BASIC METAB OLIC PANEL sodium 141 mmol/ L 135-14 6 normal Not Available [address], [address], 05/04/2024 11:16:32 05/03/20 24 05/04/2024 BASIC METAB OLIC PANEL potassium 3.9 mmol/ L 3.5-5. 3 normal Not Available [address] [address] [place], [address], 05/04/2024 11:16:32 05/03/20 24 05/04/2024 BASIC METAB OLIC PANEL chloride 101 mmol/ L 98-110 normal Not Available [address] [address] [place], [address], 05/04/2024 11:16:32 05/03/20 24 05/04/2024 BASIC METAB OLIC PANEL carbon dioxide 29 mmol/ L 20-32 normal Not Available [address] [address] [place], [address], 05/04/2024 11:16:32 05/03/20 24 05/04/2024 BASIC METAB OLIC PANEL calcium 9.3 mg/dL 8.6-10 .4 normal Not Available [address] [address] [place], [address], 05/04/2024 11:16:32 05/03/20 24 05/03/2024 HbA1c (hemo globi n A1c), blood HbA1c 5.4 Not Available In-Office Order Internal Use Only DO Not Attach Compendium DO Not Attach Compendium, Do Not Delete/merge, [id number] 05/03/2024 10:30:37 09/07/19 25 09/08/2024 TSH+F REE T4 TSH 11.19 mIU/L 0.40-4 .50 high Not Available [address], [address], 09/08/2024 09:30:19 09/07/1909/08/2024 TSH+F REE T4 T4, free 0.9 NG/dL 0.8-1. 8 normal Not Available [address], [address], 09/08/2024 09:30:19 09/07/1909/08/2024 BASIC METAB OLIC PANEL glucose 99 mg/dL 65-99 normal Fasti ng refer ence inter shilpa Not Available [address], [address], 09/08/2024 09:30:20 09/07/19 25 09/08/2024 BASIC METAB OLIC PANEL urea nitrogen (BUN) 15 mg/dL 7-25 normal Not Available [address], [address], 09/08/2024 09:30:20 09/07/1909/08/2024 BASIC METAB OLIC PANEL creatinine 0.85 mg/dL 0.50-1 .05 normal Not Available [address], [address], 09/08/2024 09:30:20 09/07/1909/08/2024 BASIC METAB OLIC PANEL eGFR 76 mL/mi n/1.7 3m2 > or = 60 normal Not Available [address], [address], 09/08/2024 09:30:20 09/07/19 25 09/08/2024 BASIC METAB OLIC PANEL BUN/creatini ne ratio SEE NOTE: (calc ) 6-22 Not Repor vasile: BUN and Creat inine are withi n refer ence range . Not Available [address], [address], 09/08/2024 09:30:20 09/07/19 25 09/08/2024 BASIC METAB OLIC PANEL sodium 140 mmol/ L 135-14 6 normal Not Available [address], [address], 09/08/2024 09:30:20 09/07/19 25 09/08/2024 BASIC METAB OLIC PANEL potassium 3.9 mmol/ L 3.5-5. 3 normal Not Available [address], [address], 09/08/2024 09:30:20 09/07/19 25 09/08/2024 BASIC METAB OLIC PANEL chloride 105 mmol/ L 98-110 normal Not Available [address], [address], 09/08/2024 09:30:20 09/07/19 25 09/08/2024 BASIC METAB OLIC PANEL carbon dioxide 27 mmol/ L 20-32 normal Not Available [address], [address], 09/08/2024 09:30:20 09/07/19 25 09/08/2024 BASIC METAB OLIC PANEL calcium 9.1 mg/dL 8.6-10 .4 normal Not Available [address], [address], 09/08/2024 09:30:20 12/28/19 24 12/27/2023 XR, chest , 2 view No observ ation record ed. [email or web address] [facility] [address] [place], [address], 12/28/2023 13:20:07 02/27/20 24 02/26/2024 XR, chest , 2 view No observ ation record ed. [facility] [address] [place] [address] , [place], [address], 02/28/2024 12:35:59 Result Notes None recorded. Problems Name Problem SNOMED Code Status Onset Date Resolution Date Notes Provider Name and Address Organization Details Recorded Time Hyperlip idemia 42513303 Completed 201705/18/2018 Removal Reason: switch to mixed hyperlip idemia Dillan smith, [place] - [facility] 8 10:38:53 Migraine without aura 85233831 Active 2017 Not Available [facility] 0 20:09:37 Mixed hyperlip idemia 154243899 Active 2017 Not Available [facility] 0 20:09:37 History of bariatri c surgical procedur e 257155800 Active [address] [facility] [place] Not Available [facility] 0 20:09:37 Pain in limb 79601807 Completed 201211/24/2016 Location : None;Sev erity: Moderate ;Progres s: Stable;A dded By: Juliana Valdivia; Add to Current Problems : NO MICHELA Maki Attn: Accounting ,[address] [place], [address] , [facility] 7 10:37:11 Closed fracture of navicula r bone of foot 21432661 Completed 201211/24/2016 Location : None;Sev erity: Moderate ;Progres s: Stable;A dded By: Dillan Washburn;Add to Current Problems : NO MICHELA Maki Attn: Accounting ,[address] [place], [address] , [facility] - [facility] 7 10:37:08 Hypothyr oidism 11220943 Active 2016 Not Available [facility] 0 20:09:37 Hypergly cemia 65326191 Completed 201605/18/2018 Removal Reason: now prediabe tic Dillan Washburn [place], [place] - [facility] 8 10:36:35 Dependen t edema 012534158 Active 2016 Not Available [facility] 0 20:09:37 Problem Notes None recorded. Procedures Surgical History Date Name Laterality Status Provider Name and Address Organization Details Recorded Time 018 laparoscopic sleeve gastrectomy completed Dillan Washburn [place] - [facility] 2 15:50:30 017 Joint Injection completed MICHELA Maki Attn: Accounting,[address] [place], [address], [place] - [facility] 08/25/2016 13:21:40 012 Cholecystectomy completed [facility] - [facility] 04/05/2017 09:31:34 985 Appendectomy completed [facility] [place] - [facility] 04/05/2017 09:31:21 967 Remove tonsils and adenoids completed [facility] - [facility] 04/05/2017 09:31:53 Imaging Results None recorded. Procedure Notes None recorded. Medical Equipment None Reported. Allergies Allergen ID Allergen Name Allergen Category Reaction Reaction Severity Criticality Documentation Date Start Date Code Code System Note Provider Name and Address Organization Details Recorded Time 17187 Augmentin medicatio n Not available Not available Not available 06/30/2016 32281 2 RxNorm Jenni Harrisshaggy null, [place] - [facility] 6 10:19:41 [address]1543 Synthroid medicatio n Not available Not available Not available 06/30/2016 32801 0 RxNorm Jenni Harrisma [place], [place] - [facility] 6 10:21:42 64178 erythromy luzmaria medicatio n Not available Not available Not available 06/30/2016 4053 RxNorm Jenni Harrisma null, [place] - [facility] 6 10:21:48 Medications Name Sig Start Date Stop Date Status Note LastModified by Organization Details LastModified Time carisopro dol 350 mg tablet TAKE 1 TABLET BY MOUTH AT BEDTIME FOR TMJ SYNDROME 02/25 completed Not Available Not Available Not Available fluconazo le 100 mg tablet 07/13 completed Not Available Not Available Not Available atorvasta tin 10 mg tablet Take 1 tablet every day by oral route. 11/16 completed Not Available Not Available Not Available azithromy luzmaria 250 mg tablet 11/24 completed Not Available Not Available Not Available benzonata te 200 mg capsule TAKE 1 CAPSULE BY MOUTH THREE TIMES A DAY NEEDED FOR COUGH 02/25 completed Not Available Not Available Not Available valacyclo vir 1 gram tablet TAKE 1 TABLET BY MOUTH EVERY 8 HOURS FOR 7 DAYS 03/07 completed Not Available Not Available Not Available lisinopri l 20 mg tablet one PO daily 11/24 completed RxNorm: 729282;A lisa Substitu tion: True Not Available Not Available Not Available phentermi ne 15 mg capsule TAKE 1 CAPSULE BY MOUTH EVERY DAY BEFORE BREAKFAS T OR 1-2 HOURS AFTER BREAKFAS T 02/25 completed Not Available Not Available Not Available zolmitrip pickens 5 mg tablet 1 TAB BY MOUTH NEEDED. MAY REPEAT DOSE AFTER 2HOURS. DO NOT EXCEED 10MG WITHIN 24 HOURS 2021 active Not Available Not Available Not Avai lable Kenalog 40 mg/mL suspensio n for injection Take 40 mg by injectio n route. 11/24 completed Cparent Not Available Not Available Not Available benzonata te 100 mg capsule 11/16 completed Not Available Not Available Not Available cephalexi n 500 mg capsule TAKE 1 CAPSULE BY MOUTH EVERY 8 HOURS FOR 10 DAYS 02/25 completed Not Available Not Available Not Available levothyro xine 125 mcg tablet TAKE 1 TABLET BY MOUTH EVERY DAY active Not Available Not Available No t Available hyoscyami ne 0.125 mg sublingua l tablet 11/16 completed Not Available Not Available Not Available lidocaine 5 % topical patch APPLY 1 PATCH BY TOPICAL ROUTE ONCE DAILY (MAY WEAR UP TO 12HOURS. ) 03/07 completed Not Available Not Available Not Available levothyro xine 150 mcg tablet TAKE 1 TABLET BY MOUTH EVERY DAY DIRECTED 2024 active Not Available Not Available Not Avai lable omeprazol e 20 mg capsule,d elayed release 05/17 completed Not Available Not Available Not Available codeine 10 mg-guaife nesin 100 mg/5 mL oral liquid 11/16 completed Not Available Not Available Not Available hydrochlo rothiazid e 25 mg tablet TAKE 1 TABLET BY MOUTH EVERY DAY active Not Available Not Available No t Available furosemid e 20 mg tablet TAKE 1 TABLET BY MOUTH EVERY DAY active Not Available Not Available No t Available ergocalci ferol (vitamin D2) 1,250 mcg (50,000 unit) capsule TAKE 1 CAPSULE BY MOUTH WEEKLY FOR 8 WEEKS 07/13 completed Not Available Not Available Not Available methylpre dnisolone 4 mg tablets in a dose pack TAKE 6 TABLETS ON DAY 1 DIRECTED ON PACKAGE AND DECREASE BY 1 TAB EACH DAY FOR A TOTAL OF 6 DAYS 02/25 completed Not Available Not Available Not Available doxycycli ne hyclate 100 mg tablet 11/16 completed Not Available Not Available Not Available phentermi ne 37.5 mg capsule TAKE 1 CAPSULE BY MOUTH EVERY DAY 02/25 completed Not Available Not Available Not Available Ventolin HFA 90 mcg/actua tion aerosol inhaler 1-2 puffs q 4-6 hours prn 07/13 completed Not Available Not Available Not Available ciproflox acin 0.3 %-dexamet hasone 0.1 % ear drops,nicky pension INSTILL 4 DROPS OTIC ROUTE EVERY 12 HOURS FOR 7 DAYS RETAIN EAR DROPS IN AFFECTED EAR/EARS FOR 5 MIN 02/25 completed Not Available Not Available Not Available cholestyr amine (with sugar) 4 gram oral powder DISSOLVE 1 SCOOP IN LIQUID AND DRINK TWICE DAILY WITH MEALS 11/16 completed Not Available Not Available Not Available hydrocodo ne 7.5 mg-acetam inophen 325 mg/15 mL oral solution 11/16 completed Not Available Not Available Not Available nitrofura ntoin monohydra te/macroc rystals 100 mg capsule TAKE 1 CAPSULE BY MOUTH EVERY 12 HOURS FOR 7 DAYS 02/25 completed Not Available Not Available Not Available Bryce-Citra te 03/07 completed Not Available Not Available Not Available PNS Unna Boot use as directed 09/09 completed Allow Substitu tion: True Not Available Not Available Not Available aprepitan t 40 mg capsule 11/16 completed Not Available Not Available Not Available Nascobal 500 mcg/spray nasal spray 03/07 completed Not Available Not Available Not Available levothyro xine 125 mcg capsule Take 1 capsule every day by oral route. 11/24 completed Not Available Not Available Not Available levothyro xine 150 mcg capsule Take 1 capsule( s) by mouth daily before breakfas t. 08/26 completed Allow Substitu tion: True Not Available Not Available Not Available Prepopik 10 mg-3.5 gram-12 gram oral powder packet 09/20 completed Not Available Not Available Not Available Belviq XR 20 mg tablet,ex tended release Take 1 tablet every day by oral route. 11/24 completed Not Available Not Available Not Available Fluzone Quad (PF) 60 mcg (15 mcg x 4)/0.5 mL IM syringe ADM 0.5ML IM UTD 07/20 completed Not Available Not Available Not Available Vitals Date Recorded Systolic And Diastolic Provider Name and Address Organization Details Last Updated DateTime 02/26/2024 132/84 mm[Hg] Celeste Maki Attn: Accounting,[address] [place], [address], [facility] 02/26/2024 16:16:13 Date Recorded Body weight Body mass index (BMI) Body height Oxygen saturation Oxygen saturation in Arterial blood by Pulse oximetry Heart rate Body temperature Provider Name and Address Organization Details Last Updated DateTime 4 148546. 63 g 51.6 kg/m2 165.1 cm 98 % 98 % 74 /min 97.9 [degF] Jessenia Sanchez MA [facility] 4 15:42:54 Date Recorded Body height Body temperature Oxygen saturation Oxygen saturation in Arterial blood by Pulse oximetry Heart rate Systolic And Diastolic Provider Name and Address Organization Details Last Updated DateTime 2 165.1 cm 97.5 [degF] 96 % 96 % 86 /min 112/74 mm[Hg] Milad Parish MA [facility] 2 15:43:31 Date Recorded Body height Body mass index (BMI) Body weight Body temperature Oxygen saturation Oxygen saturation in Arterial blood by Pulse oximetry Heart rate Systolic And Diastolic Provider Name and Address Organization Details Last Updated DateTime 4 165.1 cm 50.5 kg/m2 996910. 54 g 100.2 [degF] 98 % 98 % 85 /min 126/81 mm[Hg] Bailey Bennett MA [facility] 4 10:07:53 Social History Question Answer Notes LastModified by IMGuest Details LastModified Time Tobacco Smoking Status Never Smoker SHAGGY Baer, [facility] 11/16/2017 10:18:38 What Is Your Level Of Caffeine Consumption? Moderate Information not available 03/07/2022 What Was The Date Of Your Most Recent Tobacco Screening? 05/03/2024 [email or web address] Information not available 05/03/2024 Sex: Female Functional Status Question Answer Note LastModified by IMGuest Details LastModified Time Do you use any illicit or recreational drugs? No Information not available 03/07/2022 What is your level of alcohol consumption? Occasional Information not available 03/07/2022 Mental Status None recorded. Family History Relationship Description Onset Age of this Age Resolved Age Notes LastModified by Organization Details LastModified Time Mother Malignant neoplasm of lung [email or web address] Not available 09:32:04 Mother Aneurysm [email or web address] Not avail able 04/05/2017 09:32:17 Mother Type 2 diabetes mellitus [email or web address] Not available 09:32:28 Medical History Condition Response High Blood Pressure Y Headaches Y Thyroid Problems Y Gynecological History Statement/Question Response Menses Monthly N Obstetrics History GPAL:G 0 P 0 0 0 0 Immunizations Vaccine Type Date Status Note Provider Nam e and Address Organization Details Recorded Time Influenza, split virus, quadrivalent, preservative 0 completed SHAGGY Baer [facility] 07/13/2020 11:30:49 Pneumococcal conjugate PCV 13 7 completed Not Available [facility] 09/07/2019 02:33:01 Tdap 7 completed Not Available [facility] 09/07/2019 02:33:56 Influenza, split virus, quadrivalent, preservative 9 completed Not Available [facility] 09/07/2019 02:38:09 Tdap 7 completed Not Available [facility] 04/02/2020 20:09:37 Past Encounters Encounter ID Performer Location Encounter Start Date Encounter Closed Date Diagnosis/Indication Diagnosis SNOMED-CT Code Diagnosis ICD10 Code Diagnosis Note [id number] [facility] [address] [place] [address] 06/30/2016 10:19:20 07/05/2016 11:16:54 Hypothyroidism 28699595 E03.9 Prediabetes 594045869 R7 3.03 will rech FBS and lipids in 2-3 months with tSH after starting therapy for hypothyroi dism. Discussed with patient, the pathophysi ology of type II diabetes and insulin resistance . Discussed the potential complicati ons and vascular compromise of uncontroll ed blood sugars, such as stroke, CAD, retinopath y and kidney disease. We reviewed current HgA1C and goal of <7 A1C. Lipid goals discussed. Importance of UTD immunizati ons, yearly eye exams, and foot checks. We discussed in great length carb counting, label reading and her daily carbohydra te goals. Choosing healthy carbs like fruits, veggies, whole grains, and lean proteins. Avoiding any sugar in beverages, and how exercise is important in maintainin g healthy blood sugars and a healthier weight. We spent more than 25 minutes in this counseling session. Hyperlipidemia 04610498 E78.5 low fat diet and rech in 3 months with other labs [id number] Louise Rogers MD [facility] [address] [place] [address] 08/25/2016 09:38:06 08/26/2016 10:18:26 Hypothyroidism 35157631 E03.9 Hyperglycemia 72972604 R 73.9 Administra tion of pneumococcal vaccine 13425967 Z23 Greater tr ochanteric pain syndrome 9100079 M70.60 Morbid obesity 456806808 E66.01 [id number] Dillan Washburn MD [facility] [address] [place] [address] 09/23/2016 11:06:50 09/23/2016 14:28:37 Hypothyroidism 62685885 E03.9 [id number] Dillan Washburn MD [facility] [address] [place] [address] 11/24/2016 09:51:50 11/24/2016 17:15:32 Hypothyroidism 61422396 E03.9 Hyperglycemia 41192374 R 73.9 Edema of l ower extremity 257502533 R60.0 [id number] Dillan Washburn MD [facility] [address] [place] [address] 04/06/2017 09:17:23 04/06/2017 15:53:44 Chronic diarrhea 351411270 K52.9 Hyperglycemia 48964449 R 73.9 Hyperlipid emia screening 578732883 Z13.220 Administra tion of diphtheria, pertussis, and tetanus vaccine 896214015 Z23 Screening for malignant neoplasm of colon 717582201 Z12.11 [id number] Del Martinez MD [facility] [address] [place] [address] 11/16/2017 09:50:20 11/16/2017 16:37:49 Hypothyroidism 59135429 E03.9 Hyperglycemia 77263555 R 73.9 Hyperlipidemia 47102555 E78.5 Obesity 858946516 E66.9 she has lost almost 100 pounds in the last year and a half, with healthy dietary changes, encouraged to continue on that healthy path and f/u in 6 months Migraine 79518104 G43.90 9 Wheezing 79039590 R06.2 Screening for malignant neoplasm of breast 303458753 Z12.31 [id number] Dillan Washburn MD [facility] [address] [place] [address] 05/18/2018 09:37:02 05/18/2018 13:26:56 Hypothyroidism 62501983 E03.9 Mixed hyperlipidemia 267 838893 E78.2 Prediabetes 679937155 R7 3.03 Migraine without aura 56 464018 G43.009 Screening for malignant neoplasm of breast 604397078 Z12.39 [id number] Dillan Washburn MD [facility] [address] [place] [address] 11/16/2018 09:37:38 11/16/2018 14:21:32 Prediabetes 846739956 R73.03 Mixed hyperlipidemia 267 156920 E78.2 History of bariatric surgical procedure [id number] Z98.84 has f/u with her bariatric MD for labs, iron, B12 etc. Will send copies when she receives results. Hypothyroidism [id number] E03.9 Screening for malignant neoplasm of breast [id number] Z12.31 Multiple a ctinic keratoses 808301152 L57.0 [id number] BRITTANY [facility] [address] [place] [address] 05/17/2019 09:18:19 05/17/2019 10:35:52 Mixed hyperlipidemia 619372064 E78.2 Prediabetes 054991772 R7 3.03 History of bariatric surgical procedure [id number] Z98.84 Has appt with bariatric group at one year. I would encourage her to go, [facility], and then we can check her labs yearly after that. Hypothyroidism 22189899 E03.9 Administra tion of influenza vaccine 46216370 Z23 Screening for malignant neoplasm of breast 970856739 Z12.31 [id number] Dillan Washburn [facility] [address] [place] [address] 07/13/2020 09:29:51 07/13/2020 16:51:13 Hypothyroidism 50410983 E03.9 Dependent edema 13357798 4 R60.0 [id number] Dillan Washburn [facility] [address] [place] [address] 07/20/2020 15:02:06 07/21/2020 15:56:05 Herpes zoster 3575731 B02.9 [id number] Dillan Washburn [facility] [address] [place] [address] 03/07/2022 15:20:19 03/07/2022 17:16:44 Hypothyroidism 14086305 E03.9 Essential hypertension 69708982 I10 Migraine without aura 56 140536 G43.009 History of bariatric surgical procedure [id number] Z98.84 Acute maxi llary sinusitis 45244689 J01.00 [id number] Matti Parrish [facility] [address] [facility] [address] [place] [address] 02/26/2024 14:52:57 02/29/2024 13:36:50 Orthopnea 54149658 R06.01 heart and lung exam normal. Will r/o CHF. Suspicious for hypothyroi d state contributi ng to a lot of her symptoms, she has not been taking any medication for months. Obvious NALINI symptoms reported with nocturnal hypoxia per apple watch. Will await labs and CXR, will restart diuretic and synthroid. Will check home sleep study likely as next step. Weight gain 3158249 R63. 5 Hyperlipidemia 40909807 E78.5 fasting Dependent edema 07012599 4 R60.0 worsening the last 3 months. will start loop diuretic in case some underlying CHF and change back to HCTZ shortly. F/U closely pending lab and CXR. [id number] Matti Parrish MD [facility] [address] [facility] [address] [place] [address] 05/03/2024 09:47:19 05/05/2024 09:25:49 Dependent edema [id number] R60.0 took 10 days of lasix and then restarted her HCTZ, restarted her thyroid medication daily which she was NOT taking and confirmed very low per labs. Still swelling, did MUCH better with the lasix, will change back to lasix and will rech BMP in another month Prediabetes 671787705 R7 3.03 last two A1C 5.2, will remove diagnosis from list. Hypothyroidism 29531308 E03.9 restarted thyroid med 2 months. Rech lab today to make sure she is therapeuti c Cramp in lower limb 4029 02397 R25.2 likely from HCTZ, encouraged LOTS of hydration during the day Health Concerns Section Related Observation LastModified by Organization Detai ls LastModified Time None Recorded Concern Status LastModified by Organization Details LastModified Time None Recorded Advance Directives Directive None Recorded Payers Insurance Date Sequence Insurance Name Policy Number Policy Seals Covered Member ID Seals Member ID Guarantor Name 05/06/2024 1 [facility] [id number] Ema Brandon [id number] Ema Brandon Notes Date Note Type Note Provider Name and Address Organization Details Recorded Time 07/13/20 text/htm l Hypertension F/UReported bypatient.Associated Symptoms:no dizziness; no lightheadedness; no chest pain; no shortness of breath; no palpitations; no edema; no calf pain with exertion Lifestyle:regular exercise; limiting/avoiding salt Medications:taking medications as directed; no side effects from medication NICK Lane 07/13/2020 12:32:23 07/20/20 text/htm l Rash/Skin LesionReported bypatient.Location:neck Quality:itchy;painful;spreadi ng; bumpy, looks like shingles to her Severity:severe Duration:monday Context:scratching Alleviating Factors:nothing gives relief Aggravating Factors:nothing makes it worse Associated Symptoms:no fever; no cold symptoms; no nausea; no vomiting; no diarrhea; no urinary symptoms; no chills; no fatigue; no change in weight NICK Lane SIPeri 07/20/2020 16:53:55 03/07/20 text/htm l HeadacheReported bypatient.Quality:not the worst headache ever; similar to previous headaches;aching;pain Severity:no pain Duration:intermittent Onset/Timing:better Context:not related to trauma Aggravating factors:loud noise Alleviating factors:rest; Zolmitriptan- prn Associated Symptoms:tearing/watery eyes; no confusion; no slurred speech; no preceeding aura; no double vision; normal feeling/sensation; no motor paralysis; no dizziness; no sleep disturbances; no nosebleeds; no hoarseness; no sore throat; no hearing loss;nausea;vomiting;photopho biaSinusitis/AllergyReported bypatient.Associated Symptoms:no nasal discharge; no fever; no weight loss; no hemoptysis; no hematemesis; no difficulty breathing; no feeling of strangulation; no nausea or vomiting; no headache; no facial pain; no sinus pain; no nasal discharge; no nasal passage blockage; no nasal itching; no eye itching; no pain behind the eyes; no skin itching;sore throat;thick phlegm in throat;constantly clearing the throat;ear fullness; cough-lymph nodes swollen- Onset/Timing:new onset; initially started 2days ago Quality:no itching; no throbbing; minimal discomfort;worsening;weak voice;hoarseness Duration:constant Severity:does not limit daily activities; no frequent breathing through the mouth; no nosebleeds (epistaxis); no snoring; mild Context:no recent upper respiratory infection; not worse with seasonal allergen exposure; not worse around animals; not worse around pollen; not worse around dust; not worse around molds; not worse with environmental exposure; not worse when mowing grass; not worse with certain foods; not worse with odors;recent sick contacts Risk Factors:no current smoking or tobacco use; no history of smoking; no increased stress; no family history of allergies; no history of nasal trauma; no allergy to aspirin; no history of nasal polyps; no history of asthma; no chemotherapy; no DM; no HIV; no immunodeficiency Alleviating factors:nothing gives relief Aggravating factors:not worse with change in medication; not worse during an upper respiratory infection (a cold); nothing makes it worse Prior Testsculture of nasal secretionsThyroidReported bypatient.Quality:improving Severity:mild Onset/Timing:still present; occur daily Context:normal thyroid levels; no history of head or neck radiation during childhood; no history of thyroid disease; no history of hypothyroidism; no history of hyperthyroidism; no excess iron exposure;history of hypothyroidism Modifying Factors:nothing makes it worse Exercisegets exercise; walks 2 times per week Associated Symptoms:no heat intolerance; no weight loss; no weight gain; no double vision; no dry eyes; no hoarseness; no difficulty swallowing; no neck masses; no deepening of the voice; no fast heart rate; no increased blood pressure; no palpitations; no chest pain; no chest tightess or pressure; no constipation; no diarrhea; no vomiting; no decreased appetite; no loose stools; no irregular menstrual periods; no excessive sweating; no joint pain; no numbness; no tingling of the hands or feet; no dry skin; no tremor; no nervousness; no anxiety; no depression; no fatigue; no sleep difficulties; no skin changes; no hair changes;cold intoleranceNotes:medication is working for her- no pt needs meds refills on all meds - pt states she having some sinus problems today- pt took a rapid covid test yesterday, results were negative Dillan Washburn luis, [facility] 03/07/2022 16:23:32 02/26/20 24 text/htm l FatigueReported bypatient.Severity:normal sleep patterns; normal exercise habits; normal activity; pt falls asleep fine but if she wakes up its difficult togo back to sleep Duration:a few weeks Context:symptoms do not improve on weekends/vacations Modifying Factors:new stressors in life Associated Symptoms:no depression; no anxiety; no sleep disturbances; no snoring;periods of not breathing (apnea) have been observed; SOB started about 2 weeks ago pt says SOB is all day but worse during the nightpt says 3 nights last week she woke up and could not breathe, gasping for air, 78% lowest saturation, and comes up to 90s if she sits up and calms herself down. This has only started since she has gained significant amount of her weight backHas orthopnea, must sleep with at least 2 pillows at 30 degrees in order to be comfortable, otherwise she feels SOB. Swelling in her legs is also worse the last 3 months.pt has some leg swelling that has gotten bad over the past few weeks MICHELA Maki Attn: Accounting,[address] [place], [address], [facility] 02/28/2024 23:32:42 05/03/20 24 text/htm l EdemaReported bypatient.Quality:legs do not swell equally;symptoms worse in the evening; Rt leg swells worse. Severity:moderate Duration:constant Context:prior history of edema Modifying Factors:elevate legs Associated Symptoms:no shortness of breath; no shortness of breath during exertion; no nocturia; no swelling in lower legs; no significant weight gain; no cough; no orthopnea; no paroxysmal nocturnal dyspnea (PND); no chest pain; no palpitations Todays A1C 5.4 MICHELA Maki Attn: Accounting[address] [place], [address], [facility] 05/03/2024 10:37:02 OBGyn Episode No OBEpisode recorded.
[2025-03-04 00:51] VITALS: BP 142/79; PULSE 81; RESP 22; TEMP 36.8; O2SAT 96
--- OUTSIDE RECORDS SUMMARY | 2025-03-04 00:51 | XMS_ITS | Continuity of Care Document ---
Author Organization [facility] Address [address] [place] [address] [place] [address] Phone Care Team Providers Care Efficiency Miner Blasting Name Role Phone Lucila AUGUSTINE, Grant Bauer Unavailable Unavaila ble Procedures Procedure Date New Pt-Compreh (4) Scan Computeriz Ophth Dx Imag, Retina Ext Ophthal-Initial LT Ext Ophthal-Initial RT Advance Directives Directive Yes / No Effective Date File Name No Information Encounters Encounter Description Practice Location Reason(s) For Visit Diagnoses Date Provider Providers Copied on Encounter [facility] [address] [place], [id number], tel:[phone] [facility] No Information 4 Lucila Bauer. [address] [place] [address] [address], [place], [place], [id number] , . tel:[phone] New Pt-Compreh (4) [facility] [address] [place], [id number], tel:[phone] [facility] No Information 9 Lucila Bauer. [address] [place] [address] [address], [place], [place], [id number] , . [phone] Referring Provider: Katerina Cazares OD, [address], [place], [address] . tel:[phone] Family History Family Member Type Diagnosis Age At Onset No Information Payers Payer name Insurance type Covered libertarian ID Authoriza tion(s) No Information Social History [...]
--- OUTSIDE RECORDS SUMMARY | 2025-03-04 00:51 | XMS_ITS | Referral Summary ---
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
--- OUTSIDE RECORDS SUMMARY | 2025-03-04 00:51 | XMS_ITS | Encounter Summary ---
Author Organization [facility] Address 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
--- OUTSIDE RECORDS SUMMARY | 2025-03-04 00:51 | XMS_ITS | Clinical Summary ---
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
--- OUTSIDE RECORDS SUMMARY | 2025-03-04 00:51 | XMS_ITS | Clinical Summary ---
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
--- OUTSIDE RECORDS SUMMARY | 2025-03-04 00:51 | XMS_ITS | Clinical Summary ---
Author Organization [facility] Address [address] [place] [address] Care Team Providers Care Turning Machine Set Up Operator Name Role Phone Mahsa Wakefield MD Primary Care Provider [phone] Source Comments [facility],non-owned Affiliates and Associated Physician Practices is amultiple site organization consisting of ambulatory clinics and hospital sitesin [place] and [place]. This disclosure is being madepursuant to the Care Everywhere program and may not contain all information available regarding this patient. Last updated 18.[facility] Allergies Active Allergy Reactions Criticality Noted Date [...] problems Immunizations Immunization Administration Dates Next Due CovUbiregi primary monoval ent 12+ yr 0.3mL Purple cap 10/02/2020,09/09/2020 Social History Tobacco Use Types Packs/Day Years Used Date Smoking Tobacco: Never Alcohol Use Standard Drinks/Week Comments Not Asked 0 (1 standard drink = 0.6 oz pur e alcohol) Comments Unknown Sex and Gender Information Value Date Recorded Sex Assigned at Not on file Legal Sex Female 6:16 AM PEG DRIVER Gender Identity Not on file Sexual Orientation [...] Comments LIPID PROFILE Routine 06/30/2017 10:58 AM PEG DRIVER from Last 3 Months or Most Recently Relevant to Health Maintenance Results * (ABNORMAL) LIPID PROFILE (06/30/2017 10:58 AM PEG DRIVER) Cholesterol Total 189 <200 mg/dL [facility] HDL 53 >40 mg/dL [facility] Comment: ATP III Classification of HDL Cholesterol: <40 mg/dL: Considered a major risk factor. >60 mg/dL: Considered a negative risk factor. LDL Calculated 114(H) <100 mg/dL [facility] Comment: ATP III Classification of LDL Cholesterol: <100 mg/dL: Optimal 100 - 129 mg/dL: Near Optimal/Above Optimal 130 - 159 mg/dL: Borderline High 160 - 189 mg/dL: High >190 mg/dL: Very High Triglycerides 109 <150 mg/dL [facility] Comment: ATP III Classification of Triglycerides: <150 mg/dL: Normal 150 - 199 mg/dL: Borderline High 200 - 400 mg/dL: High >500 mg/dL: Very High Blood specimen (specimen) BLOOD SPECIMEN / Unknown 06/30/2017 10:58 AM PEG DRIVER 06/30/2017 11:34 AM PEG DRIVER us Historical Provider LAB - CHEMISTRY ORDERABLE S Final Result [address] [phone] from Last 3 Months or Most Recently Relevant to Health Maintenance Insurance [facility] [place] [id number] [facility] Care Teams Turning Machine Set Up Operator Relationship Specialty Start Date End Date Mahsa Wakefield MD [address] [address] PCP - General 07/19/21
--- OUTSIDE RECORDS SUMMARY | 2025-03-04 00:51 | XMS_ITS | Clinical Summary ---
Author Organization [facility] Address [address] [place] [address] Care Team Providers Care Telephone Recorder Name Role Phone Unavailable Primary Care Provider [...]
--- OUTSIDE RECORDS SUMMARY | 2025-03-04 00:51 | XMS_ITS | Continuity of Care Document ---
Author Organization [facility] ter Address [address] [place] [address] Phone Care Team Providers Care Health Services Director Name Role Phone Mary Rowley APRN Unavailable [...] E&m Estab Low-mod 7 Offic/outpt E&m Estab [facility] [place] 2 17 Preven Meds 40-64 Offic/outpt E&m Estab Low-mod 7 Offic/outpt E&m Estab Mod-tx 2 17 Offic/outpt E&m Estab [facility] [place] 2 17 Offic/outpt E&m Estab Low-mod 7 Init Preven 40-64 Yrs Advance Directives Directive Yes / No Effective Date File Name No Information Encounters Encounter Description Practice Location Reason(s) For Visit Diagnoses Date Provider Providers Copied on Encounter [facility], [address], [place], [place], [id number], [place] tel:[phone] [facility] No Information 0 Halley Hernandez. [address], [place], [place], [id number] , [place]. tel: [phone] [facility], [address], [place], [place], [id number], [place] tel:[phone] [facility] No Information 8 Nii Llanes. [address], [place], [place], [id number] , [place]. tel: [phone] No Show Charge [facility], [address], [place], [place], [id number], [place] tel:[phone] [facility] No Information 8 Nii Llanes. [address], [address], [place], [place], [id number] , [place]. tel: [phone] [facility], [address], [place], [place], [id number], [place] tel:[phone] [facility] No Information 7 Nii Llanes. [address], [address], [place], [place], [id number] , [place]. tel: [phone] Offic/outpt E&m Estab Low-mod [facility], [address], [place], [place], [id number], [place] tel:[phone] [facility] chronic conditions (chief complaint)rev iew labs (chief complaint) Thyrotoxicosis, unspecified without thyrotoxic crisis or stormUnilateral post-traumatic osteoarthritis, right kneeEssential (primary) hypertensionHypok alemia 7 Nii Llanes. [address], [address], [place], [place], [id number] , [place]. tel: [phone] Offic/outpt E&m Estab Mod-hi 2 [facility], [address], [place], [place], [id number], [place] tel:[phone] [facility] chronic conditions (chief complaint)dis cuss lab results (chief complaint) Thyrotoxicosis, unspecified without thyrotoxic crisis or stormUnilateral post-traumatic osteoarthritis, right kneeAllergic rhinitis due to pollenEssential (primary) hypertensionType 2 diabetes mellitus with diabetic dermatitisHypokal emia 7 Nii Llanes. [address], [address], [place], [place], [id number] , [place]. tel: [phone] Prev Meds 40-64 [facility], [address], [place], [place], [id number], [place] tel:[phone] [facility] chronic conditions (chief complaint)rev iew labs (chief complaint)pre ventive exam (chief complaint) Thyrotoxicosis, unspecified without thyrotoxic crisis or stormUnilateral post-traumatic osteoarthritis, right kneeType 2 diabetes mellitus with diabetic dermatitisEssenti al (primary) hypertensionHypok alemiaBody mass index (BMI) 37.0-37.9, adultEncounter for general adult medical examination without abnormal findings 7 Nii Llanes. [address], [place], [place], [id number] , [place]. tel: [phone] Offic/outpt E&m Estab Low-mod [facility], [address], [place], [place], [id number], [place] tel:[phone] [facility] hypertension (chief complaint)ref ill (chief complaint)chr onic conditions (chief complaint) Thyrotoxicosis, unspecified without thyrotoxic crisis or stormEssential (primary) hypertensionUnila teral post-traumatic osteoarthritis, right kneeType 2 diabetes mellitus with diabetic dermatitis 7 Nii Llanes. [address], [address], [place], [place], [id number] , [place]. tel:[phone] Offic/outpt E&m [facility] 2 [facility], [address], [place], [place], [id number], [place] tel:[phone] [facility] chronic conditions (chief complaint)rev iew labs (chief complaint) Thyrotoxicosis, unspecified without thyrotoxic crisis or stormUnilateral post-traumatic osteoarthritis, right kneeAllergic rhinitis due to pollenType 2 diabetes mellitus with diabetic dermatitisEssenti al (primary) hypertensionAnemi a 7 Nii Llanes. [address], [address], [place], [place], [id number] , [place]. tel:[phone] Offic/outpt E&m [facility] 2 [facility], [address], [place], [place], [id number], [place] tel:[phone] [facility] chronic conditions (chief complaint)dis cuss medication/ (chief complaint) Thyrotoxicosis, unspecified without thyrotoxic crisis or stormAllergic rhinitis due to pollenType 2 diabetes mellitus with diabetic dermatitisEssenti al (primary) hypertensionAnemi a 7 Nii Llanes. [address], [address], [place], [place], [id number] , [place]. tel:[phone] Offic/outpt E&m Estab Low-mod [facility], [address], [place], [place], [id number], [place] tel:[phone] [facility] chronic conditions (chief complaint)rev iew labs (chief complaint)ref ill (chief complaint) Thyrotoxicosis, unspecified without thyrotoxic crisis or stormAllergic rhinitis due to pollenUnilateral post-traumatic osteoarthritis, right kneeEssential (primary) hypertensionType 2 diabetes mellitus with diabetic dermatitisEncount er for screening for lipoid disorders 7 Nii Llanes. [address], [address], [place], [place], [id number] , [place]. [phone] Init Preven 40-64 Yrs [facility], [address], [place], [place], [id number], [place] tel:[phone] [facility] chronic conditions (chief complaint)lab slip (chief complaint) Essential (primary) hypertensionThyro toxicosis, unspecified without thyrotoxic crisis or stormUnilateral post-traumatic osteoarthritis, right kneeMenorrhagiaTy pe 2 diabetes mellitus with diabetic dermatitis 7 Nii Llanes. [address], [address], [place], [place], [id number] , [place]. tel:[phone] Family History Family Member Type Diagnosis Age At Onset Problem (finding) Family history of malignant neoplasm of lung Problem (finding) Family history of Heart disease Problem (finding) Family history of diabetes mellitus type 2 Problem (finding) Family history of hyper tension Payers Payer name Insurance type Covered democrat [...] ordered Future Order: Lab Order Iron/TIB C ([id number]), Sent on: Sent Future Order: Lab Order FERRITIN ([id number]), Sent on: Sent Future Order: Lab Order CBC with Diff ([id number]), Sent on: Sent History Of Present Illness Encounter Date Complaint History Of Prese nt Illness review labs chronic conditions 1) Thyrotoxic osis, [...] potassium klor con 40meq 2 tabs bic chronic conditions 1) Thyrotoxic osis, unspecified without [...] has no complaints) Pertinent negatives include fatigue. preventive exam Negative for dys menorrhea and menorrhagia. Menopausal symptoms negative for: night sweats. Pertinent negatives include anxiety, depression and vaginal discharge. The patient does not use tobacco. She does drink alcohol. hypertension The symptoms beg an 30 years ago. It is currently getting worse. Risk factors include race. The hypertension is exacerbated by nothing. Pertinent negatives include chest pain, claudication, dyspnea, fatigue, hematuria, irregular heartbeat/palpitations and vomiting. refill chronic conditions 1) Thyrotoxic osis, unspecified without [...] complaints) Pertinent negatives include fatigue. review labs refill chronic conditions 1) Thyrotoxic osis, unspecified without [...] include fatigue, weight gain and weight loss. chronic conditions 1) Essential (primary) hypertension (onset 11/03/2016; Stable. pt has no complaints) 2) Thyrotoxicosis, unspecified without thyrotoxic crisis or storm (onset 11/03/2016; Stable. pt has no complaints) 3) Unilateral post-traumatic osteoarthritis, right knee (onset 11/03/2016; Stable. pt has no complaints) Pertinent negatives include fatigue, weight gain and weight loss. lab slip Functional Status Date Functional Assessmen t No Information Instructions Date Instruction Additional Infor meri Increase activity. Related to Es sential (primary) [...] diet. Relate d to Essential (primary) hypertension diet and exercise Related to [place] Increase activity. Related to Es sential (primary) hypertension Follow a low sodium diet. Relate d to Essential (primary) hypertension Assessments Type Assessment Date No Information Patient Care Teams Name Effective Dates (start - stop) Status Members No Information
--- NOTE | 2025-03-04 01:22 | ED_ITS ---
HPI - General Adult General Chief complaint: Extremity Injury, Upper Stated complaint: left shoulder pain after fall Time Seen by Provider: 03/04/25 00:31 History of Present Illness HPI narrative: Patient is a 64-year-old female who presents to the emergency department this evening complaining of left shoulder pain after falling out of bed. Patient states that she was reaching out for the remote and fell off the bed landing directly on her left shoulder. She is complaining of pain radiating from her left shoulder to her elbow. She states that moving her left upper extremity at the left shoulder and elbow joints precipitated the pain, however, as long she is not moving she has no pain. Patient states that she heard a pop when she fell. Denies hitting her head. No additional injuries or concerns at this time. Related Data Allergies Allergy/AdvReac Type Severity Reaction Status Date / Time erythromycin base Allergy Unknown Itching Verified 03/04/25 00:45 AMOXICILLIN TRIHYDRATE Allergy Unknown Itching Uncoded 03/04/25 00:45 ERYTHROMYCIN LACTOBIONATE Allergy Unknown Hives Uncoded 03/04/25 00:45 POTASSIUM CLAVULANATE Allergy Unknown Hives Uncoded 03/04/25 00:45 Review of Systems Review of Systems: All systems are reviewed and are negative unless stated otherwise in the HPI. [facility] Past Medical History Medical History Hypertension Post-menopausal Hypothyroid Surgical History Surgical History History of tonsillectomy Hx of appendectomy History of cholecystectomy Family History Family History Father Carcinoma of colon Mother Family history of lung cancer Other Family history of allergic disorder Family history of cardiovascular disease Hypertension Social History Social History Smoking status: Never smoker Alcohol intake: never Substance use: never Living arrangements: with family Additional occupation/education comments: [employer] Gender identity (if verbalized by the patient): Female Exam Narrative: General: Alert, awake, afebrile, in no acute distress. HEENT: PERRL, no rhinorrhea, no post nasal drip, oropharynx clear. Neck: Trachea midline, no JVD, no lymphadenopathy. Cardiovascular: Regular rate and rhythm, no murmurs, rubs or gallops, no peripheral edema. Respiratory: Clear to auscultation bilaterally, no tachypnea, no wheezing, no rhonchi, no rubs, no respiratory distress. Abdomen: Soft, nontender, nondistended, no rebound, no guarding, no peritoneal signs. Musculoskeletal: No joint swelling or deformity specifically to the left shoulder joint, no ecchymosis, normal muscle tone, decreased range of motion at the left shoulder joint secondary to pain, patient is neurovascularly intact, intact radial and ulnar pulses. Skin: No rashes or petechia, no signs of infection. Psychiatric: Alert and oriented, normal behavior and judgment for situation. Neurological: Alert and oriented to person, place, and time. Follows all commands. No focal deficits, speech is clear and fluent. Course Vital Signs Vital signs: Vital Signs Temperature 98.2 F 03/04/25 00:51 Pulse Rate 81 03/04/25 00:51 Respiratory Rate 22 H 03/04/25 00:51 Blood Pressure 142/79 H 03/04/25 00:51 Pulse Oximetry 96 03/04/25 00:51 Temperature 98.2 F 03/04/25 00:51 Pulse Rate 81 03/04/25 00:51 Respiratory Rate 22 H 03/04/25 00:51 Blood Pressure 142/79 H 03/04/25 00:51 Pulse Oximetry 96 03/04/25 00:51 Medical Decision Making MDM Narrative Medical decision making narrative: The patient was evaluated by myself in the emergency department. History is obtained from patient who is an independent historian and physical exam was performed. External medical records were reviewed at this time. Patient was administered an oral [place] and 600 mg of oral ibuprofen. Patient's is present at bedside with the patient and will be driving her home. Imaging studies obtained included left shoulder, humerus, elbow and forearm x- rays which was independently interpreted by me revealing no acute process, which is pending final radiology interpretation. Differential diagnosis considerations include fracture, dislocation, musculoskeletal strain, rotator cuff injury. Comorbidities impacting this visit include none. I have evaluated and discussed social determinants of health with the patient that could potentially impact subsequent diagnosis and treatment plans. On repeat assessment of the patient, reevaluation revealed that the patient is doing well and is in no acute distress. Patient symptoms have improved since she arrived to our emergency department. Repeat vital signs were all reviewed and noted to be stable. Differential diagnosis and treatment plan were discussed with the patient at bedside. Patient agrees with discussion and after shared medical decision making agrees with discharge. All questions were answered to the patient's satisfaction. Patient will follow up with Orthopedics in 3-5 days. Patient was provided with a script for [place] to use for breakthrough pain if ibuprofen and Tylenol are not alleviating her symptoms. Patient was instructed that if her symptoms do not improve when than a week she may need an MRI of her left shoulder joint to evaluate for rotator cuff injury. Patient was provided with strict return precautions and instructed to return to the emergency department if any new or worsening symptoms develop. The patient was discharged in stable condition. Vital Signs Vital Signs: Vital Signs Temperature 98.2 F 03/04/25 00:51 Pulse Rate 81 03/04/25 00:51 Respiratory Rate 22 H 03/04/25 00:51 Blood Pressure 142/79 H 03/04/25 00:51 Pulse Oximetry 96 03/04/25 00:51 Temperature 98.2 F 03/04/25 00:51 Pulse Rate 81 03/04/25 00:51 Respiratory Rate 22 H 03/04/25 00:51 Blood Pressure 142/79 H 03/04/25 00:51 Pulse Oximetry 96 03/04/25 00:51 Discharge Plan Discharge Clinical Impression: Injury of left shoulder, Fall from ground level Patient Disposition: Home Condition: Improved Instructions: Antibiotic Form, Shoulder Sprain (ED) Additional Instructions: Please follow-up with your doctor within the next 3-5 days. Take ibuprofen and Tylenol as needed for pain, if that does not alleviate your pain and you may use the prescribed pain medications as needed for breakthrough pain. You also provided with an orthopedic referral and instructed to call to set up a follow- up appointment if you symptoms do not improve as you may need an MRI for further evaluation for rotator cuff injury. You were provided with a sling for comfort, however, you should not maintain your left upper extremity in a sling at all times any need to move and exercise your left shoulder/left arm multiple times throughout the day to prevent a frozen joint. Patient Language: Panamanian Prescriptions: New hydrocodone-acetaminophen 5-325 mg tablet 1 tablet PO Q8H PRN (Reason: pain) Qty: 8 0RF No Action benzonatate 200 mg capsule 200 mg PO TID 7 Days Qty: 21 0RF albuterol sulfate 90 mcg/actuation HFA aerosol inhaler 2 puff inhalation Q4-6H PRN (Reason: shortness of breath or wheezing) 30 Days Qty: 8.5 0RF Follow-up/Referrals: Twyla,Mahsa Louise MD [Primary Care Provider] - 3 Days Jethro Nichole MD [Physician] - 1 Week Time of Disposition: 01:54
[2025-03-04] MEDS: HYDROcodone/acetaminophen (*CRX) 5-325 MG TABLET 1 TAB PO (01:23)
[2025-03-04] MEDS: IBUPROFEN 600 MG TABLET PO (01:24)
[2025-03-04 02:26] VITALS: BP 147/91; PULSE 68; RESP 20; O2SAT 96
== END 2025-03-04 02:22 | disposition home or self-care (01) ==
PROVIDERS: Emergency Provider Emergency Medicine; PCP Family Medicine
DX: S49.92XA Unspecified injury of left shoulder and upper arm, initial encounter (principal); W06.XXXA Fall from bed, initial encounter; I10 Essential (primary) hypertension; E03.9 Hypothyroidism, unspecified
CPT/HCPCS: 73030; 73060; 73080; 73090; 99284; A4565; A9270